=== PATIENT | male | born 1960 | race Caucasian/White ===

== ENCOUNTER 2020-09-12 06:11 | Outpatient (REF) | payer OTHER, SELFPAY ==
[2020-09-12 07:06] LABS: MANUAL DIFF FLAG NO
[2020-09-12 07:15] LABS: Basophils Percent Auto 0.3 % (0-2); Eosinophils Absolute Auto 0.2 X10*3/uL (0.0-0.4); Hematocrit 41.6 % (42-52); Hemoglobin 13.4 g/dl (14.0-18.0); Imm Gran Abs Auto 0.04 X10*3/uL (0.00-0.03); Imm Gran Pct Auto 0.5 % (0.0-0.4); Lymphocytes Absolute Auto 2.5 X10*3/uL (1.2-4.9); Lymphocytes Percent Auto 34.4 % (20-40); Mean Corpuscular HGB Conc 32.2 g/dl (31.0-36.0); Mean Corpuscular Hemoglobin 29.6 pg (27.0-33.0); Mean Corpuscular Volume 91.8 fL (80-98); Mean Platelet Volume 10.5 fL (9.4-12.4); Monocytes Absolute Auto 0.5 X10*3/uL (0.1-1.2); Monocytes Percent Auto 6.7 % (2-11); Neutrophils Percent Auto 55.1 % (45-73); Platelet Count 244 X10*3/uL (160-400); Red Blood Count 4.53 X10*6/uL (4.60-5.80); Red Cell Distribution Width 12.8 % (11.0-16.0); White Blood Count 7.3 X10*3/uL (4.8-10.8)
[2020-09-12 07:44] LABS: Creatinine Urine 53.12 mg/dL; Microalbumin Urine < 5.0 mg/L
[2020-09-12 08:00] LABS: Alanine Aminotransferase 19 U/L (0-40); Albumin Level 4.5 g/dL (3.5-5.0); Alkaline Phosphatase 55 U/L (39-117); Anion Gap 13 (12-20); Aspartate Amino Transferase 16 U/L (5-37); Bilirubin Total 0.7 mg/dL (0.0-1.0); Blood Urea Nitrogen 18 mg/dL (9-16); Calcium 9.3 mg/dL (8.4-10.2); Carbon Dioxide 30 mmol/L (22-29); Chloride 99 mmol/L (96-108); Cholesterol 126 mg/dL; Estimated Glomerular Filt Rate > 60; Glucose Fasting 123 mg/dL (60-99); HDL Cholesterol 49 mg/dL; LDL Cholesterol Calculated 63 mg/dl; Potassium 4.1 mmol/l (3.3-5.1); Sodium 138 mmol/L (135-145); Total Protein 6.8 g/dL (6.5-8.0); Triglycerides 72 mg/dL
[2020-09-12 08:20] LABS: Prostate Specific Antigen 2.16 ng/mL (<0.05-4.0); T4 Thyroxine 6.2 ug/dL (4.5-12.0); Thyroid Stimulating Hormone 1.59 uIU/mL (0.32-4.0)
[2020-09-12 09:54] LABS: Folate 10.9 ng/mL (> or = 4.0); Vitamin B12 338 pg/mL (200-900)
== END 2020-09-12 06:12 | disposition home or self-care (01) ==
LOC: HO.LAB 06:11
PROVIDERS: Visit Provider Internal Medicine
DX: E11.65 Type 2 diabetes mellitus with hyperglycemia (principal); K22.70 Barrett's esophagus without dysplasia; J45.909 Unspecified asthma, uncomplicated; N40.0 Benign prostatic hyperplasia without lower urinary tract symptoms; I10 Essential (primary) hypertension; E66.3 Overweight; E78.00 Pure hypercholesterolemia, unspecified
CPT/HCPCS: 36415; 80053; 80061; 82043; 82607; 82746; 84153; 84436; 84443; 85025

== ENCOUNTER 2021-03-19 07:19 | Outpatient (REF) | payer OTHER, SELFPAY ==
[2021-03-19 08:39] LABS: MANUAL DIFF FLAG NO
[2021-03-19 08:54] LABS: Basophils Percent Auto 0.2 % (0-2); Eosinophils Absolute Auto 0.3 X10*3/uL (0.0-0.4); Eosinophils Percent Auto 2.7 % (0-4); Hematocrit 42.5 % (42-52); Hemoglobin 13.5 g/dl (14.0-18.0); Imm Gran Abs Auto 0.03 X10*3/uL (0.00-0.03); Imm Gran Pct Auto 0.3 % (0.0-0.4); Immature Retic Fraction 8.8 % (2.3-13.4); Lymphocytes Absolute Auto 2.6 X10*3/uL (1.2-4.9); Lymphocytes Percent Auto 26.2 % (20-40); Mean Corpuscular HGB Conc 31.8 g/dl (31.0-36.0); Mean Corpuscular Hemoglobin 28.7 pg (27.0-33.0); Mean Corpuscular Volume 90.4 fL (80-98); Monocytes Absolute Auto 0.7 X10*3/uL (0.1-1.2); Monocytes Percent Auto 7.4 % (2-11); Neutrophils Absolute Auto 6.2 X10*3/uL (2.0-8.3); Neutrophils Percent Auto 63.2 % (45-73); Platelet Count 241 X10*3/uL (160-400); Red Cell Distribution Width 12.9 % (11.0-16.0); Retic HGB Equivalent 33.9 pg (30.0-35.0); Reticulocyte Percent 1.5 % (0.5-1.8); Reticulocytes Absolute 0.072 X10*6/uL (0.026-0.095); White Blood Count 9.7 X10*3/uL (4.8-10.8)
[2021-03-19 09:08] LABS: Iron 113 mcg/dL (45-160); Percent Iron Saturation 35 % (15-50); Total Iron Binding Capacity 327 mcg/dL (228-428); Unsaturated Iron Binding 214 ug/dL
[2021-03-19 09:17] LABS: Ferritin 77 ng/mL (20-250)
[2021-03-19 09:28] LABS: Folate 11.5 ng/mL (> or = 4.0); Vitamin B12 297 pg/mL (200-900)
== END 2021-03-19 07:20 | disposition home or self-care (01) ==
LOC: HO.LAB 07:19
PROVIDERS: PCP Internal Medicine; Visit Provider Internal Medicine
DX: D64.9 Anemia, unspecified (principal)
CPT/HCPCS: 36415; 82607; 82728; 82746; 83540; 85025; 85045

== ENCOUNTER 2021-09-25 06:39 | Outpatient (REF) | payer OTHER, SELFPAY ==
[2021-09-25 06:46] LABS: MANUAL DIFF FLAG NO
[2021-09-25 07:30] LABS: Basophils Percent Auto 0.1 % (0-2); Eosinophils Absolute Auto 0.3 X10*3/uL (0.0-0.4); Eosinophils Percent Auto 3.8 % (0-4); Hematocrit 42.7 % (42.0-52.0); Hemoglobin 13.6 g/dl (14.0-18.0); Imm Gran Abs Auto 0.04 X10*3/uL (0.00-0.03); Imm Gran Pct Auto 0.6 % (0.0-0.4); Lymphocytes Absolute Auto 2.8 X10*3/uL (1.2-4.9); Lymphocytes Percent Auto 40.1 % (20-40); Mean Corpuscular HGB Conc 31.9 g/dl (31.0-36.0); Mean Corpuscular Hemoglobin 29.2 pg (27.0-33.0); Mean Corpuscular Volume 91.8 fL (80.0-98.0); Mean Platelet Volume 10.7 fL (9.4-12.4); Monocytes Absolute Auto 0.6 X10*3/uL (0.1-1.2); Monocytes Percent Auto 7.8 % (2-11); Neutrophils Absolute Auto 3.4 x10*3/uL (2.0-8.3); Neutrophils Percent Auto 47.6 % (45-73); Platelet Count 256 X10*3/uL (160-400); Red Blood Count 4.65 X10*6/uL (4.60-5.80); Red Cell Distribution Width 12.7 % (11.0-16.0)
[2021-09-25 07:33] LABS: Estimated Average Glucose 140 mg/dL; Hemoglobin A1c % 6.5 %
[2021-09-25 07:46] LABS: Alanine Aminotransferase 17 U/L (0-40); Albumin Level 4.6 g/dL (3.5-5.0); Alkaline Phosphatase 55 U/L (39-117); Anion Gap 14 (12-20); Aspartate Amino Transferase 12 U/L (5-37); Bilirubin Total 0.5 mg/dL (0.0-1.0); Blood Urea Nitrogen 20 mg/dL (9-16); Calcium 10.1 mg/dL (8.4-10.2); Carbon Dioxide 27 mmol/L (22-29); Chloride 102 mmol/L (96-108); Cholesterol 142 mg/dL; Estimated Glomerular Filt Rate > 60; Glucose Random 140 mg/dL (60-115); HDL Cholesterol 55 mg/dL; LDL Cholesterol Calculated 74 mg/dl; Potassium 4.6 mmol/L (3.3-5.1); Sodium 138 mmol/L (135-145); Total Protein 7.2 g/dL (6.5-8.0); Triglycerides 69 mg/dL
[2021-09-25 08:09] LABS: Free T4 (Free Thyroxine) 0.96 ng/dL (0.71-1.85); Thyroid Stimulating Hormone 1.74 uIU/mL (0.32-4.0)
[2021-09-25 08:21] LABS: Folate 13.9 ng/mL (> or = 4.0); Vitamin B12 860 pg/mL (200-900)
[2021-09-25 10:15] LABS: Creatinine Urine 84.19 mg/dL; Microalbumin Urine < 5.0 mg/L
== END 2021-09-25 06:40 | disposition home or self-care (01) ==
LOC: HO.LAB 06:39
PROVIDERS: PCP Internal Medicine; Visit Provider Internal Medicine
DX: E11.65 Type 2 diabetes mellitus with hyperglycemia (principal); E78.00 Pure hypercholesterolemia, unspecified; I10 Essential (primary) hypertension; K22.710 Barrett's esophagus with low grade dysplasia
CPT/HCPCS: 36415; 80053; 80061; 82043; 82607; 82746; 83036; 84439; 84443; 85025

== ENCOUNTER 2022-02-26 10:02 | Outpatient (REF) | payer OTHER, SELFPAY | END 2022-02-26 10:03 | disposition home or self-care (01) | LOC: HO.LAB 10:02 | PROVIDERS: PCP Internal Medicine; Visit Provider Internal Medicine | DX: Z13.89 Encounter for screening for other disorder (principal) ==

== ENCOUNTER 2022-06-14 08:26 | Day surgery (SDC) | payer OTHER, SELFPAY ==
[2022-04-30 14:51] VITALS: BMI 29.0
--- NOTE | 2022-06-13 10:00 | P.CONAN_ITS ---
Documented by User: Zahida Lance NP 06/13/22 10:00 HPI - Anesthesia Eval Consult details Narrative: 61yo M for Upper Endoscopy [facility] Active Problems Active Problems: All Active Problems (Updated 03/27/21 @ 08:43 by Alden Palacios MD) Anemia (Acute) Hypercholesterolemia (Acute) Hypertension (Acute) BPH (benign prostatic hyperplasia) (Acute) Asthma (Acute) GERD (gastroesophageal reflux disease) (Acute) Barretts esophagus (Acute) Type 2 diabetes mellitus with hyperglycemia (Acute) Past Medical History Medical History Asthma Barretts esophagus BPH (benign prostatic hyperplasia) GERD (gastroesophageal reflux disease) Hypercholesterolemia Hypertension Type 2 diabetes mellitus with hyperglycemia Vitamin D deficiency Family History Family History (Updated 09/19/20 @ 13:54 by Albertina Villafuerte Ross) Father Prostate cancer Mother Stroke Brother Prostate cancer Family/Other Prostate cancer Diabetes Surgical History Surgical History H/O endoscopy History of colonoscopy History of esophagogastroduodenoscopy (EGD) Social History Social History (Updated 03/27/21 @ 08:48 by Marti Stokes CMA) Housing: House Alcohol intake: current Alcohol intake frequency: a few times a week Patient Tobacco Use Status: Never used Tobacco e-Cigarette/Vaping Use: Never Used Second Hand Smoke Exposure: No Use of substances other than those prescribed or required for medical reasons: No Are you DNR?: No Advance Directives: No Advance Directives Information Provided: Yes Current occupational status: employed Cognitive needs: No Hearing needs: No Vision needs: No Meds Allergies Allergy/AdvReac Type Severity Reaction Status Date / Time lisinopril Allergy Unknown cough Verified 04/30/22 14:44 Home Medications Medication Instructions Recorded Confirmed Last Taken Type albuterol sulfate 90 mcg/actuation 2 inh inhalation Q4-6H PRN Wheezing 09/22/20 04/30/22 Unknown History breath activated powder inhaler aspirin 81 mg tablet,delayed 81 mg PO DAILY 09/22/20 04/30/22 Unknown History release (Adult Aspirin Regimen) cholecalciferol (vitamin D3) 25 25 mcg PO DAILY 09/22/20 04/30/22 Unknown History mcg (1,000 unit) capsule finasteride 5 mg tablet 5 mg PO DAILY 09/22/20 04/30/22 Unknown History fluticasone propionate 110 2 puff inhalation BID 09/22/20 04/30/22 Unknown History mcg/actuation HFA aerosol inhaler (Flovent HFA) mometasone 0.1 % topical cream 1 applic topical DAILY 09/22/20 04/30/22 Unknown History Exam Exam Date and Time: June 13, 2022 1000 Height,Weight and Vital Signs: Height 5 ft 9 in Weight 89.358 kg Assessment and Plan Assessment Anesthesia Assessment: Chart Reviewed Documented by User: Roopa Quintana MD 06/14/22 09:52 [facility] Past Medical History Medical History Asthma Barretts esophagus BPH (benign prostatic hyperplasia) GERD (gastroesophageal reflux disease) Hypercholesterolemia Hypertension Type 2 diabetes mellitus with hyperglycemia Vitamin D deficiency Family History Family History (Updated 09/19/20 @ 13:54 by GREG Cardoza) Father Prostate cancer Mother Stroke Brother Prostate cancer Family/Other Prostate cancer Diabetes Family history of problems with anesthesia: No Surgical History Surgical History H/O endoscopy History of colonoscopy History of esophagogastroduodenoscopy (EGD) History of Problems with Anesthesia: No Social History Social History (Updated 03/27/21 @ 08:48 by Marti Stokes CMA) Housing: House Alcohol intake: current Alcohol intake frequency: a few times a week Patient Tobacco Use Status: Never used Tobacco e-Cigarette/Vaping Use: Never Used Second Hand Smoke Exposure: No Use of substances other than those prescribed or required for medical reasons: No Are you DNR?: No Advance Directives: No Advance Directives Information Provided: Yes Current occupational status: employed Cognitive needs: No Hearing needs: No Vision needs: No Meds Allergies Allergy/AdvReac Type Severity Reaction Status Date / Time lisinopril Allergy Unknown cough Verified 04/30/22 14:44 Home Medications Medication Instructions Recorded Confirmed Last Taken Type albuterol sulfate 90 mcg/actuation 2 inh inhalation Q4-6H PRN Wheezing 09/22/20 04/30/22 Unknown History breath activated powder inhaler aspirin 81 mg tablet,delayed 81 mg PO DAILY 09/22/20 04/30/22 Unknown History release (Adult Aspirin Regimen) cholecalciferol (vitamin D3) 25 25 mcg PO DAILY 09/22/20 04/30/22 Unknown History mcg (1,000 unit) capsule finasteride 5 mg tablet 5 mg PO DAILY 09/22/20 04/30/22 Unknown History fluticasone propionate 110 2 puff inhalation BID 09/22/20 04/30/22 Unknown History mcg/actuation HFA aerosol inhaler (Flovent HFA) mometasone 0.1 % topical cream 1 applic topical DAILY 09/22/20 04/30/22 Unknown History Exam Airway Mallampati Class: III TM Dist: >3cm Neck ROM: Full Assessment and Plan Assessment Anesthesia Assessment: Anesthesia Plan Discussed Final Anesthetic Review Family History of Problems with Anesthesia: No History of Problems with Anesthesia: No NPO: Yes ASA Class: III Final Preanesthetic Review: No Changes in Pt Med Stat, Meds/Allgs Chart Reviewed, Consent Obtained/Reviewed and Anes Risks/Benef Reviewed Patient Risk: Low Procedure Risk: Low Anesthetic Plan Anesthetic Plan: MAC: Disposition: Standard PACU
[2022-06-14 08:45] VITALS: BMI 28.8
[2022-06-14 08:54] VITALS: BP 121/70; PULSE 82; RESP 18; TEMP 36.2; O2SAT 97
[2022-06-14 09:18] LABS: Glucose, Whole Blood 140 mg/dL (60-115)
[2022-06-14] MEDS: Lactated Ringers 1,000 ML 100 ML IVCONT (09:19)
--- NOTE | 2022-06-14 09:23 | MHC.SHP ---
Pre-Procedural Eval Section A Date of Service: 06/14/22 Section B Chief Complaint: barretts Details of Present Illness: see H&P no changes Relevant Family History (Specify if Yes): No Relevant Social History: None Present Medications: None Medical History: Significant History History of Previous Operations: No relevant previous surgery Allergies: Allergies Allergy/AdvReac Type Severity Reaction Status Date / Time lisinopril Allergy Unknown cough Verified 04/30/22 14:44 Review of Systems Sugical H&P ROS: Negative: Constitution, Cardiovascular, Respiratory, Neurological, Psychiatric, Hem-Onc, Allergic/Immunologic, Gastrointestinal, Genitourinary, Musculoskeletal, Integumentary, Endocrine and Eyes/Ears/Nose/Throat Exam Surgical H&P Exam: Normal: HEENT, Normal: Heart, Normal: Lungs, Normal: Extremities, Normal: Abdomen, Normal: Skin and Normal: Neurological Plan Diagnosis/Plan: Unchanged I have reviewed the history and physical and performed a pertinent physical examination on my patient. No changes have occurred unless specified.
--- NOTE | 2022-06-14 09:24 | MHC.SHP ---
Pre-Procedural Eval Section A Date of Service: 06/14/22 Section B Chief Complaint: barretts Details of Present Illness: see H Allergies: Allergies Allergy/AdvReac Type Severity Reaction Status Date / Time lisinopril Allergy Unknown cough Verified 04/30/22 14:44 Plan I have reviewed the history and physical and performed a pertinent physical examination on my patient. No changes have occurred unless specified.
--- NOTE | 2022-06-14 09:47 | P.BOP_ITS ---
Brief Operative Note Date of Service: 06/14/22 Pre-op diagnosis: barretts Post-op diagnosis: same Procedure: egd Surgeon: Rodrigo Kay Anesthesia: MAC Was an Communication Studies Professor used for this Procedure?: No Estimated blood loss (mL): 5 Pathology: other Condition: stable Disposition: PACU
[2022-06-14 09:51] VITALS: BP 101/58; PULSE 64; RESP 16; TEMP 36.4; O2SAT 96
--- NOTE | 2022-06-14 10:00 | OP_ITS ---
SURGEON: Rodrigo Kay MD INDICATIONS: Montez esophagus. PREOPERATIVE DIAGNOSIS: POSTOPERATIVE DIAGNOSIS: PROCEDURE PERFORMED: Upper endoscopy with biopsy. ESTIMATED BLOOD LOSS: COMPLICATIONS: ANESTHESIA: ASSISTANTS: SPECIMENS: MEDICATIONS: Monitored anesthesia care. DESCRIPTION OF PROCEDURE: History and physical performed. The risks and benefits of the procedure were explained to the patient. Informed consent was obtained. The patient was placed in the left lateral decubitus position. The Olympus video gastroscope was introduced into the esophagus, stomach, and duodenum. Examination was performed. The scope was removed. He tolerated the procedure well and was returned to recovery area in stable condition. FINDINGS: 1. Esophagus: The esophagus showed an area of Montez esophagus extending from 34 cm to 38 cm. There were no raised lesions or ulcerated areas. There was a small hiatal hernia. 2. Stomach: The stomach was normal. 3. Duodenum : The bulb and second portion were normal. 4. Biopsies were obtained starting at the EG junction extending up the esophagus in all four quadrants every 2 cm. IMPRESSION: Montez esophagus. RECOMMENDATIONS: Follow up the biopsy results. MD CECE Peoples/LETICIA / [id number]
[2022-06-14 10:06] VITALS: BP 114/65; PULSE 69; RESP 16; O2SAT 97
== END 2022-06-14 10:50 | disposition home or self-care (01) ==
PROVIDERS: PCP Internal Medicine; Visit Provider Internal Medicine Gastroenterology
PROC: 0DJ08ZZ Inspection of Upper Intestinal Tract, Via Natural or Artificial Opening Endoscopic (ICD-10-PCS; CPT 43235; principal; 2022-06-14 09:40)
DX: K22.70 Barrett's esophagus without dysplasia (principal); K21.9 Gastro-esophageal reflux disease without esophagitis; K44.9 Diaphragmatic hernia without obstruction or gangrene; Z87.19 Personal history of other diseases of the digestive system; J45.909 Unspecified asthma, uncomplicated; E11.9 Type 2 diabetes mellitus without complications; N40.0 Benign prostatic hyperplasia without lower urinary tract symptoms; Z79.82 Long term (current) use of aspirin; Z79.84 Long term (current) use of oral hypoglycemic drugs; Z79.51 Long term (current) use of inhaled steroids; Z79.899 Other long term (current) drug therapy
CPT/HCPCS: 43239; 82947; 88305

== ENCOUNTER 2022-09-03 07:59 | Outpatient (REF) | payer OTHER, SELFPAY ==
[2022-09-03 08:06] LABS: MANUAL DIFF FLAG NO
[2022-09-03 08:45] LABS: Basophils Percent Auto 0.2 % (0-2); Eosinophils Absolute Auto 0.3 X10*3/uL (0.0-0.4); Eosinophils Percent Auto 3.2 % (0-4); Hematocrit 42.5 % (42.0-52.0); Hemoglobin 13.5 g/dl (14.0-18.0); Imm Gran Abs Auto 0.04 X10*3/uL (0.00-0.03); Imm Gran Pct Auto 0.5 % (0.0-0.4); Lymphocytes Absolute Auto 2.9 X10*3/uL (1.2-4.9); Lymphocytes Percent Auto 35.4 % (20-40); Mean Corpuscular HGB Conc 31.8 g/dl (31.0-36.0); Mean Corpuscular Hemoglobin 28.7 pg (27.0-33.0); Mean Corpuscular Volume 90.2 fL (80.0-98.0); Mean Platelet Volume 10.3 fL (9.4-12.4); Monocytes Absolute Auto 0.5 X10*3/uL (0.1-1.2); Monocytes Percent Auto 6.6 % (2-11); Neutrophils Absolute Auto 4.4 x10*3/uL (2.0-8.3); Neutrophils Percent Auto 54.1 % (45-73); Platelet Count 244 X10*3/uL (160-400); Red Blood Count 4.71 X10*6/uL (4.60-5.80); Red Cell Distribution Width 12.7 % (11.0-16.0); White Blood Count 8.1 X10*3/uL (4.8-10.8)
[2022-09-03 09:31] LABS: Alanine Aminotransferase 15 U/L (0-40); Albumin Level 4.6 g/dL (3.5-5.0); Alkaline Phosphatase 56 U/L (39-117); Anion Gap 17 (12-20); Aspartate Amino Transferase 21 U/L (5-37); Bilirubin Total 0.5 mg/dL (0.0-1.0); Blood Urea Nitrogen 15 mg/dL (9-16); Calcium 9.9 mg/dL (8.4-10.2); Carbon Dioxide 25 mmol/L (22-29); Chloride 100 mmol/L (96-108); Cholesterol 130 mg/dL; Estimated Glomerular Filt Rate > 60; Glucose Random 116 mg/dL (60-115); HDL Cholesterol 53 mg/dL; LDL Cholesterol Calculated 65 mg/dl; Potassium 4.6 mmol/L (3.3-5.1); Sodium 137 mmol/L (135-145); Triglycerides 62 mg/dL
[2022-09-03 09:39] LABS: Free T4 (Free Thyroxine) 0.93 ng/dL (0.71-1.85); Prostate Specific Antigen Scr 3.43 ng/mL (<0.05-4.0); Thyroid Stimulating Hormone 1.25 uIU/mL (0.32-4.0)
[2022-09-03 10:00] LABS: Folate 12.9 ng/mL (> or = 4.0); Vitamin B12 1031 pg/mL (200-900)
[2022-09-03 11:14] LABS: Creatinine Urine 71.14 mg/dL; Microalbumin Urine < 5.0 mg/L
== END 2022-09-03 08:00 | disposition home or self-care (01) ==
LOC: HO.LAB 07:59
PROVIDERS: PCP Internal Medicine; Visit Provider Internal Medicine
DX: E11.65 Type 2 diabetes mellitus with hyperglycemia (principal); K21.9 Gastro-esophageal reflux disease without esophagitis; K22.70 Barrett's esophagus without dysplasia; E78.00 Pure hypercholesterolemia, unspecified; Z12.5 Encounter for screening for malignant neoplasm of prostate
CPT/HCPCS: 36415; 80053; 80061; 82043; 82607; 82746; 84153; 84439; 84443; 85025

== ENCOUNTER 2023-08-11 09:51 | Outpatient (AMB) | payer OTHER, SELFPAY ==
[2023-08-11 10:41] VITALS: BP 112/66; PULSE 88; O2SAT 95; BMI 29.4
--- NOTE | 2023-08-11 10:41 | MHC.OFFWIV ---
Intake Vital Signs 08/11/23 10:41 Height 5 ft 9 in Weight 199 lb BMI 29.4 BP 112/66 Blood Pressure Location Lt brachial Position Sitting Pulse 88 Pulse Source Pulse Oximeter Pulse Oximetry (%) 95 Oxygen Delivery Method Room Air Intake Visit Reasons: est/both eyes bloodshot(lobby) Intake Note: Pt is here today for a walk in visit. Pt c/o redness itchy, puffy irritated eyes for a week. Pt states that he has been taking Sruthi which is not helping. Pt states that he had cold 2 weeks ago. Patient Tobacco Use Status: Never used Tobacco Allergies lisinopril Allergy (Unknown, Verified 08/11/23 11:30) cough Medication List - Last Reconciled 08/11/23 by Nic Dominguez MD albuterol sulfate 90 mcg/actuation 2 inhalations inhalation Q4-6H PRN atorvastatin 10 mg PO DAILY blood sugar diagnostic (OneTouch Ultra Blue Test Strip) As directed check the blood sugar once a day cholecalciferol (vitamin D3) 25 mcg PO DAILY finasteride 5 mg PO DAILY fluticasone propionate 110 mcg/actuation (Flovent HFA) 2 puffs inhalation BID lancets (OneTouch Delica Plus Lancet) As directed check the BS QD losartan 25 mg PO DAILY metformin 1,000 mg PO BID olopatadine 0.1% 1 drp ophthalmic (eye) BID omeprazole 20 mg PO DAILY Do you need a note to return to daycare/school/sports/work: No HPI est/both eyes bloodshot(lobby) HPI Details 62-year-old male presents to the office for a sick visit. Patient has history of allergy and usually takes loratadine. Over the last week he is complaining of burning in his eyes and puffiness. Minimal mucoid discharge. Continues to have running nose. [facility] Medical History (Updated 09/12/22 @ 09:30 by Alden Palacios MD) Hypercholesterolemia Vitamin D deficiency Hypertension BPH (benign prostatic hyperplasia) Asthma GERD (gastroesophageal reflux disease) Barretts esophagus Type 2 diabetes mellitus with hyperglycemia Surgical History History of esophagogastroduodenoscopy (EGD) H/O endoscopy History of colonoscopy Family History (Updated 09/19/20 @ 13:54 by GREG Cardoza) Father Prostate cancer Mother Stroke Brother Prostate cancer Family/Other Prostate cancer Diabetes Social History (Updated 09/12/22 @ 09:38 by Alden Palacios MD) Housing: House Alcohol intake: current Alcohol intake frequency: a few times a week Patient Tobacco Use Status: Never used Tobacco e-Cigarette/Vaping Use: Never Used Second Hand Smoke Exposure: No Current occupational status: employed Cognitive needs: No Hearing needs: No Vision needs: No Physical Exam Vital Signs: Last Vital Signs Pulse 88 08/11/23 10:41 BP 112/66 08/11/23 10:41 Pulse Ox 95 08/11/23 10:41 Oxygen Delivery Method Room Air 08/11/23 10:41 BMI result Body Mass Index 29.4 Eyes Other: Right and left eyes: Bilateral conjunctival congestion. Corneas clear. Anterior chambers clear. Assessment & Plan Assessment & Plan (1) Conjunctivitis: Code(s): H10.9 - Unspecified conjunctivitis Qualifiers: Conjunctivitis type: acute Acute conjunctivitis type: unspecified Laterality: bilateral Qualified Code(s): H10.33 - Unspecified acute conjunctivitis, bilateral Plan: Patanol and erythromycin called in. If symptoms do not improve to follow-up here. Coding Level of Care Code Est Pt Level 3 (87050) Diagnoses Acute conjunctivitis of both eyes, unspecified acute conjunctivitis type H10.33 Conjunctivitis type: acute Acute conjunctivitis type: unspecified Laterality: bilateral
== END 2023-08-11 11:57 | disposition home or self-care (01) ==
PROVIDERS: PCP Internal Medicine; Visit Provider Internal Medicine
DX: H10.33 Unspecified acute conjunctivitis, bilateral (principal)
CPT/HCPCS: 99213

== ENCOUNTER 2023-09-11 06:59 | Outpatient (REF) | payer OTHER, SELFPAY ==
[2023-09-11 07:09] LABS: MANUAL DIFF FLAG NO
[2023-09-11 07:22] LABS: Basophils Percent Auto 0.2 % (0-2); Eosinophils Absolute Auto 0.2 X10*3/uL (0.0-0.4); Eosinophils Percent Auto 2.2 % (0-4); Hemoglobin 13.4 g/dl (14.0-18.0); Imm Gran Abs Auto 0.05 X10*3/uL (0.00-0.03); Imm Gran Pct Auto 0.4 % (0.0-0.4); Immature Retic Fraction 7.8 % (2.3-13.4); Lymphocytes Absolute Auto 2.6 X10*3/uL (1.2-4.9); Lymphocytes Percent Auto 23.7 % (20-40); Mean Corpuscular HGB Conc 32.7 g/dl (31.0-36.0); Mean Corpuscular Hemoglobin 29.3 pg (27.0-33.0); Mean Corpuscular Volume 89.5 fL (80.0-98.0); Mean Platelet Volume 10.1 fL (9.4-12.4); Monocytes Absolute Auto 0.7 X10*3/uL (0.1-1.2); Monocytes Percent Auto 6.5 % (2-11); Neutrophils Absolute Auto 7.5 x10*3/uL (2.0-8.3); Platelet Count 220 X10*3/uL (160-400); Red Blood Count 4.58 X10*6/uL (4.60-5.80); Retic HGB Equivalent 34.1 pg (30.0-35.0); Reticulocyte Percent 1.5 % (0.5-1.8); Reticulocytes Absolute 0.067 X10*6/uL (0.026-0.095); White Blood Count 11.2 X10*3/uL (4.8-10.8)
[2023-09-11 07:32] LABS: Estimated Average Glucose 143 mg/dL; Hemoglobin A1c % 6.6 % (<6.0)
[2023-09-11 07:47] LABS: Alanine Aminotransferase 18 U/L (0-40); Albumin Level 4.5 g/dL (3.5-5.0); Alkaline Phosphatase 53 U/L (39-117); Anion Gap 14 (12-20); Aspartate Amino Transferase 17 U/L (5-37); Bilirubin Total 0.6 mg/dL (0.0-1.0); Blood Urea Nitrogen 14 mg/dL (9-16); Calcium 9.4 mg/dL (8.4-10.2); Carbon Dioxide 30 mmol/L (22-29); Chloride 99 mmol/L (96-108); Cholesterol 138 mg/dL (<200); Estimated Glomerular Filt Rate > 60; Glucose Random 141 mg/dL (60-115); HDL Cholesterol 55 mg/dL (>40); Iron 97 mcg/dL (45-160); LDL Cholesterol Calculated 68 mg/dL (<100); Percent Iron Saturation 34 % (15-50); Potassium 3.8 mmol/L (3.3-5.1); Sodium 139 mmol/L (135-145); Total Iron Binding Capacity 282 mcg/dL (228-428); Total Protein 7.3 g/dL (6.5-8.0); Triglycerides 76 mg/dL (<150); Unsaturated Iron Binding 185 ug/dL
[2023-09-11 08:01] LABS: Ferritin 73 ng/mL (20-250); Free T4 (Free Thyroxine) 0.87 ng/dL (0.71-1.85); Thyroid Stimulating Hormone 1.76 uIU/mL (0.32-4.0)
[2023-09-11 08:15] LABS: Folate 10.9 ng/mL (> or = 4.0); Vitamin B12 1214 pg/mL (200-900)
[2023-09-11 08:52] LABS: Creatinine Urine 129.82 mg/dL; Microalbum/Creatinine Ratio Ur 5.3 ug/mg cr (<30)
== END 2023-09-11 07:00 | disposition home or self-care (01) ==
LOC: HO.LAB 06:59
PROVIDERS: PCP Internal Medicine; Visit Provider Internal Medicine
DX: E11.65 Type 2 diabetes mellitus with hyperglycemia (principal); K22.70 Barrett's esophagus without dysplasia; D51.3 Other dietary vitamin B12 deficiency anemia; N40.1 Benign prostatic hyperplasia with lower urinary tract symptoms; R35.0 Frequency of micturition; E78.00 Pure hypercholesterolemia, unspecified
CPT/HCPCS: 36415; 80053; 80061; 82043; 82570; 82607; 82728; 82746; 83036; 83540; 84153; 84439; 84443; 85025; 85045

== ENCOUNTER 2023-09-19 09:57 | Outpatient (AMB) | payer OTHER, SELFPAY ==
[2023-09-19 10:08] VITALS: BP 118/72; PULSE 73; O2SAT 97; BMI 28.7
--- NOTE | 2023-09-19 10:08 | MHC.PC.OV ---
Vital Signs 09/19/23 10:08 Height 5 ft 9 in Weight 194 lb 2 oz BMI 28.7 BP 118/72 Blood Pressure Location Lt brachial Position Sitting Pulse 73 Pulse Source Pulse Oximeter Pulse Oximetry (%) 97 Oxygen Delivery Method Room Air Intake Visit Reasons: Annual Exam Intake Note: Patient is here today for a physical. Compensator Worker Required: No Accompanied by: Self / Same As Patient Allergies lisinopril Allergy (Unknown, Verified 09/19/23 10:11) cough Medication List - Last Reconciled 09/19/23 by Alden Palacios MD albuterol sulfate 90 mcg/actuation 2 inhalations inhalation Q4-6H PRN atorvastatin 10 mg PO DAILY blood sugar diagnostic (Ringio Ultra Blue Test Strip) As directed check the blood sugar once a day cholecalciferol (vitamin D3) 25 mcg PO DAILY finasteride 5 mg PO DAILY fluticasone propionate 110 mcg/actuation (Flovent HFA) 2 puffs inhalation BID lancets (Code Blueuch Delica Plus Lancet) As directed check the BS QD losartan 25 mg PO DAILY metformin 1,000 mg PO BID olopatadine 0.2% (Pataday Once Daily Relief) 1 drp ophthalmic (eye) BEDTIME omeprazole 20 mg PO DAILY xcjznzw-bwdn-qhijv-oreg-capryl 100 mg-150 mg- 50 mg-150 mg caps PO Tobacco use date assessed: 03/14/23 Dental Screening Dental Screen Date: 09/19/23 Did you have a dental visit in the last 12 months?: Yes Did you have a dental problem in the last 6 months where you did not have access to dental care?: No Was dental information given to patient?: Patient has dentist HPI Annual Exam HPI Details 62-year-old overweight male with diabetes mellitus Montez's esophagus asthma hypertension hypercholesterolemia last seen in March 2023. Patient is up-to-date with colon test January 2019 [facility] Medical History (Updated 09/19/23 @ 11:05 by Alden Palacios MD) Hypercholesterolemia Vitamin D deficiency Hypertension BPH (benign prostatic hyperplasia) Asthma GERD (gastroesophageal reflux disease) Barretts esophagus Type 2 diabetes mellitus with hyperglycemia Surgical History History of esophagogastroduodenoscopy (EGD) H/O endoscopy History of colonoscopy Family History Father Prostate cancer Mother Stroke Brother Prostate cancer Family/Other Prostate cancer Diabetes Social History (Updated 09/19/23 @ 10:48 by Alden Palacios MD) Housing: House Alcohol intake: current Alcohol intake frequency: a few times a week Patient Tobacco Use Status: Never used Tobacco e-Cigarette/Vaping Use: Never Used Second Hand Smoke Exposure: No Current occupational status: employed Cognitive needs: No Hearing needs: No Vision needs: No Questionnaire Thrive Questionnaire Date Thrive assessed: 03/14/23 DEBBIE-7 AMB Questionnaire DEBBIE-7 Date DEBBIE - 7 assessed: 03/14/23 Source: Developed by Drs. Justo Michaud, Sheyla Mcgee, Everett Valentin and colleagues, with an educational samina from [employer]. Review of Systems Const Denies poor appetite and Denies weakness Eyes Denies no additional complaints ENT Reports Normal hearing present, Denies dizziness, Denies nasal congestion, Denies tinnitus and Denies sore throat Card Denies chest pain, Denies syncope, Denies rapid heart rate and Denies dyspnea Resp Denies cough and Denies dyspnea GI Denies change in stool character, Reports constipation, Denies diarrhea, Denies nausea and Denies vomiting Denies dysuria and Denies urinary frequency Neuro Reports Normal hearing present, Denies confusion, Denies dizziness, Denies syncope and Denies weakness Psych Denies confusion Physical exam (Primary Care) Vital Signs: Last Vital Signs Pulse 73 09/19/23 10:08 BP 118/72 09/19/23 10:08 Pulse Ox 97 09/19/23 10:08 Oxygen Delivery Method Room Air 09/19/23 10:08 BMI result Body Mass Index 28.7 Tobacco/Smoking Status: Tobacco use Status Tobacco use date assessed 03/14/23 09/19/23 10:14 Patient Tobacco Use Status Never used Tobacco 09/19/23 10:48 e-Cigarette/Vaping Use Never Used 09/19/23 10:48 Thrive Assessment: Date of Thrive Assessment Date Thrive assessed 03/14/23 09/19/23 10:14 Const General: alert and awake; No confusion Orientation/consciousness: No confusion HENMT Other: impacted cerumen bilateral Head: Yes normocephalic Ears: external ears normal Face and sinus: Yes normal facial exam Mouth: moist mucous membranes Throat: Yes tonsils normal Eyes Conjunctivae: conjunctivae normal Pupils: Equal, round and reactive pupils present and Pupil accommodation reflex normal Direct Ophthalmoscopy: normal light reflex Neck Neck: No lymphadenopathy Thyroid: Thyroid normal Chest Chest palpation & inspection: normal inspection of the chest Resp Effort & Inspection: normal respiratory effort and no audible wheezes Auscultation: clear to auscultation bilaterally, no crackles, no wheezes and lung sounds not diminished Cardio Rate: regular rate Rhythm: regular rhythm Peripheral pulses: radial pulses present and dorsalis pedis present GI Other: Patient declined rectal exam Palpation (GI): no masses Auscultation: normal bowel sounds and normoactive bowel sounds Rectal Exam - Male: Yes deferred Male General Exam: Yes normal external exam Back/Spine/Pelvis Other: Pedal pulses normal pinprick normal Skin General skin exam: no rashes or lesions noted Rashes: no rashes Neuro General: deep tendon reflexes 2+ bilaterally and No confusion Cranial nerves: Yes Equal, round and reactive pupils present, Yes Midline tongue present, Yes Normal hearing present and Yes Ability to bilaterally elevate shoulders present Cognition (Neuro): normal cognition Gait exam (Neuro): Normal gait present Motor exam (neuro): 5/5 motor strength present throughout Deep tendon reflexes (DTR's): Right brachioradialis reflex intensity grade: 2+, Left brachioradialis reflex intensity grade: 2+, Right patellar reflex intensity grade: 2+ and Left patellar reflex intensity grade: 2+ Extrem General: No edema Office Procedures Cerumen Removal From which ear canal was the cerumen removed: bilateral Removal: otoscope w/curette and cerumen loop/spoon Notes: patient tolerated procedure well, no complications and ear canal clear [id number] Wax Removal by Spoon/Curette Flu Questionnaire Does the patient have a severe egg allergy?: No Does the patient have severe life threatening allergies?: No Does the patient have a fever or illness today?: No Has the patient ever had Guillain-Walcott Syndrome?: No Has the patient ever had any past reaction to a flu shot?: No Immunizations flu vacc [id number] 6mos up(PF) 60 mcg(15 mcgx4)/0.5 mL IM syringe Performing Provider: Alden Palacios MD Performing Location: [facility] Administered by: MAGGIE Escobedo on 09/19/23 10:24 Dose Route Admin Location Dispensed Lot Number Expiration Date NDC Jet Blade Polisher 0.5 mL IM Left Deltoid 0.5 mL [id number] 05/02/24 81852-864-68 [facility] VIS Given Date VIS Provided VIS Publication Date 09/19/23 Single Vaccine 21 Eligibility Eligibility Date Funding Source Not [facility] Eligible 09/19/23 Private Assessment and Plan Assessment & Plan (1) Annual physical exam: Code(s): Z00.00 - Encounter for general adult medical examination without abnormal findings (2) Anemia: Code(s): D64.9 - Anemia, unspecified Qualifiers: Anemia type: B12 deficiency Vitamin B12 deficiency anemia type: other dietary B12 deficiency Qualified Code(s): D51.3 - Other dietary vitamin B12 deficiency anemia Plan: Chronic and stable (3) Type 2 diabetes mellitus with hyperglycemia: Comment: dR. Tong Eye and lasik Code(s): E11.65 - Type 2 diabetes mellitus with hyperglycemia Qualifiers: Diabetes mellitus long term care administrator insulin use: without group home use Qualified Code(s): E11.65 - Type 2 diabetes mellitus with hyperglycemia Plan: Decrease the amount of carbohydrate intake, pasta, bread, rice and potatoes are all sugar and that is aside from all the sweet stuff, remember that fruits are good but they are Sweet also. Hemoglobin A1c goal of less than 6.5 (4) Barretts esophagus: Comment: November 2012 Dr. Kay July 2022 Code(s): K22.70 - Montez's esophagus without dysplasia Qualifiers: Montez's esophagus type: without dysplasia Qualified Code(s): K22.70 - Montez's esophagus without dysplasia Plan: Avoid the foods that causes that usually spicy foods, tomato products, juices, coffee, soda and foods that your sensitive to. After eating do not lie down, allow 3-4 hours before in lie down. And keep the head of bed above 30 degrees to avoid the acid from going up. (5) Asthma: Code(s): J45.909 - Unspecified asthma, uncomplicated Qualifiers: Asthma complication type: uncomplicated Asthma persistence: intermittent Asthma severity: mild Qualified Code(s): J45.20 - Mild intermittent asthma, uncomplicated Plan: Continue with inhaler as needed (6) BPH (benign prostatic hyperplasia): Comment: Dr. Mccarthy Code(s): N40.0 - Benign prostatic hyperplasia without lower urinary tract symptoms Qualifiers: Lower urinary tract symptom detail: urinary frequency Lower urinary tract symptom presence: symptoms present Qualified Code(s): N40.1 - Benign prostatic hyperplasia with lower urinary tract symptoms; R35.0 - Frequency of micturition Plan: Continue with finasteride (7) Hypertension: Code(s): I10 - Essential (primary) hypertension Qualifiers: Hypertension type: essential hypertension Qualified Code(s): I10 - Essential (primary) hypertension Plan: Continue with blood pressure medication. Decrease salt intake and exercise patient on losartan 25 mg once a day (8) Hypercholesterolemia: Code(s): E78.00 - Pure hypercholesterolemia, unspecified Plan: Avoid fried foods, chicken skin, eggs, butter margarine, pastries and meat. Be it pork or beef they have a lot of cholesterol LDL goal of less than 100 and triglyceride of less than 150 patient on atorvastatin 10 mg once a day (9) Impacted cerumen of both ears: Code(s): H61.23 - Impacted cerumen, bilateral Plan: scoop and no irrigation TM intact Orders: Orders Influenza [id number] Immunization Today Z23 - Encounter for immunization Coding Level of Care Code Est Pt Prev Care 40-64y(22539) Diagnoses Annual physical exam Z00.00 Other dietary vitamin B12 deficiency anemia D51.3 Anemia type: B12 deficiency Vitamin B12 deficiency anemia type: other dietary B12 deficiency Type 2 diabetes mellitus with hyperglycemia, without long-term current use of insulin E11.65 Diabetes mellitus long term care administrator insulin use: without long term care administrator use Montez's esophagus without dysplasia K22.70 Montez's esophagus type: without dysplasia Mild intermittent asthma without complication J45.20 Asthma complication type: uncomplicated Asthma persistence: intermittent Asthma severity: mild Benign prostatic hyperplasia with urinary frequency N40.1; R35.0 Lower urinary tract symptom detail: urinary frequency Lower urinary tract symptom presence: symptoms present Essential hypertension I10 Hypertension type: essential hypertension Hypercholesterolemia E78.00 Impacted cerumen of both ears H61.23 CPT Codes Office Procedure - CPT: 55263-[id number] Wax Removal by Spoon/Curette ([id number])
== END 2023-09-19 11:14 | disposition home or self-care (01) ==
PROVIDERS: Visit Provider Internal Medicine
DX: Z00.00 Encounter for general adult medical examination without abnormal findings (principal); E11.65 Type 2 diabetes mellitus with hyperglycemia; D51.3 Other dietary vitamin B12 deficiency anemia; K22.70 Barrett's esophagus without dysplasia; J45.20 Mild intermittent asthma, uncomplicated; N40.1 Benign prostatic hyperplasia with lower urinary tract symptoms; H61.23 Impacted cerumen, bilateral; Z23 Encounter for immunization; R35.0 Frequency of micturition; I10 Essential (primary) hypertension; E78.00 Pure hypercholesterolemia, unspecified
CPT/HCPCS: 69210; 90471; 90686; 99396

== ENCOUNTER 2023-11-10 11:20 | Outpatient (AMB) | payer OTHER, SELFPAY ==
[2023-11-10 11:26] VITALS: BP 118/66; PULSE 79; TEMP 36.4; O2SAT 97; BMI 29.4
--- NOTE | 2023-11-10 11:26 | AM.OFFWIN_ITS ---
Intake Vital Signs 11/10/23 11:26 Height 5 ft 9 in Weight 199 lb BMI 29.4 BP 118/66 Pulse 79 Pulse Source Pulse Oximeter Temp 97.6 F Pulse Oximetry (%) 97 Oxygen Delivery Method Room Air Intake Visit Reasons: EST/ongoing eye irritation (lobby) Intake Note: pt is here today for ongoing eye irritation started week ago Patient Tobacco Use Status: Never used Tobacco Allergies lisinopril Allergy (Unknown, Verified 11/10/23 12:02) cough Do you need a note to return to daycare/school/sports/work: No HPI HPI Comments History of Present Illness Details Patient presents to the walkin today for irritation to the left eye for last 2 days. Patient reports itching to the left eye. was seen here in the fall for the same. Has an appt with eye doctor next month. He had remaining abx ointment from last visit and has been using that for last 2 days Denies pain to the eye, denies vision changes, headache. Patient denies pain with eye movement. Denies fever, cough, sinus congestion, sore throat or ear ache. Denies trauma to the eye or foreign body sensation. [facility] Medical History (Updated 09/19/23 @ 11:05 by Alden Palacios MD) Hypercholesterolemia Vitamin D deficiency Hypertension BPH (benign prostatic hyperplasia) Asthma GERD (gastroesophageal reflux disease) Barretts esophagus Type 2 diabetes mellitus with hyperglycemia Surgical History History of esophagogastroduodenoscopy (EGD) H/O endoscopy History of colonoscopy Family History Father Prostate cancer Mother Stroke Brother Prostate cancer Family/Other Prostate cancer Diabetes Social History (Updated 09/19/23 @ 10:48 by Alden Palacios MD) Housing: House Alcohol intake: current Alcohol intake frequency: a few times a week Patient Tobacco Use Status: Never used Tobacco e-Cigarette/Vaping Use: Never Used Second Hand Smoke Exposure: No Current occupational status: employed Cognitive needs: No Hearing needs: No Vision needs: No Review of Systems Const All systems reviewed & are unremarkable except as noted in HPI and below Physical Exam Vital Signs: Last Vital Signs Temp 97.6 F 11/10/23 11:26 Pulse 79 11/10/23 11:26 BP 118/66 01/08/24 11:26 Pulse Ox 97 11/10/23 11:26 Oxygen Delivery Method Room Air 11/10/23 11:26 BMI result Body Mass Index 29.4 General: awake, alert, oriented. Answers questions appropriately. Fully engaged in examination. Skin: warm, dry, intact HEENT: Normocephalic. Hearing intact. left eye: +conjunctival injection. no discharge noted Cardiac: External chest normal in appearance. Respiratory: No cough, audible wheezing or stridor. Abdomen: without gross distension. MS: No obvious swelling or deformities. Neurological: Oriented to person, place, time and situation. Thought process intact. Psychiatric: Appropriate mood and affect. Good judgment and insight. Assessment & Plan Assessment & Plan (1) Conjunctivitis: Code(s): H10.9 - Unspecified conjunctivitis Plan Erythromycin ointment and olopatadine RX sent. patient instructed on use. Avoid touching, rubbing the eyes. Do not use same area of facecloth to clean both eyes. Wash hands often. All questions and concerns were answered during the visit. Patient agrees with the plan. Follow up with pcp or return to walkin for any new or worsening symptoms. Follow up with eye dr as planned. All question and concerns addressed during visit, patient agrees with plan. Medications: Refilled erythromycin 0.5 inches ophthalmic (eye) TID 1 g 0RF olopatadine 0.1% 1 drp ophthalmic (eye) BID 5 caps 4RF Coding Level of Care Code Est Pt Level 4 (76185) Diagnoses Conjunctivitis H10.9
== END 2023-11-10 12:55 | disposition home or self-care (01) ==
PROVIDERS: PCP Internal Medicine; Visit Provider Registered Nurse Emergency
DX: H10.9 Unspecified conjunctivitis (principal)
CPT/HCPCS: 99213

== ENCOUNTER 2024-03-19 08:35 | Outpatient (AMB) | payer OTHER, SELFPAY ==
[2024-03-19 08:59] VITALS: BP 104/62; PULSE 70; BMI 29.1
--- NOTE | 2024-03-19 08:59 | MHC.PC.OV ---
Vital Signs 03/19/24 08:59 Height 5 ft 9 in Weight 197 lb BMI 29.1 BP 104/62 Blood Pressure Location Lt brachial Position Sitting Pulse 70 Pulse Source Pulse Oximeter Oxygen Delivery Method Room Air Intake Visit Reasons: DM Panel Raiser Operator Required: No Lead Driver: Not Required per policy Accompanied by: Self / Same As Patient Allergies lisinopril Allergy (Unknown, Verified 03/19/24 08:59) cough Medication List - Last Reconciled 03/19/24 by Alden Palacios MD albuterol sulfate 90 mcg/actuation 2 inhalations inhalation Q4-6H PRN atorvastatin 10 mg PO DAILY blood sugar diagnostic ([employer] Ultra Blue Test Strip) As directed check the blood sugar once a day cholecalciferol (vitamin D3) 25 mcg PO DAILY erythromycin 0.5 inches ophthalmic (eye) TID finasteride 5 mg PO DAILY fluticasone propionate 110 mcg/actuation (Flovent HFA) 2 puffs inhalation BID lancets (CHARMS PPEC Delica Plus Lancet) As directed check the BS QD losartan 25 mg PO DAILY metformin 1,000 mg PO BID olopatadine 0.1% 1 drp ophthalmic (eye) BID olopatadine 0.2% (Pataday Once Daily Relief) 1 drp ophthalmic (eye) BEDTIME omeprazole 20 mg PO DAILY zifzxfud-tznc-mdqpo-oreg-capry 100 mg-150 mg- 50 mg-150 mg caps PO Tobacco use date assessed: 03/19/24 Dental Screening Dental Screen Date: 03/19/24 Did you have a dental visit in the last 12 months?: Yes Did you have a dental problem in the last 6 months where you did not have access to dental care?: No Was dental information given to patient?: Patient has dentist HPI DM HPI Details 63-year-old overweight male(5 lb weight gain) with diabetes mellitus Barretts asthma BPH hypertension hypercholesterolemia coming in for follow-up. Last seen in September 2023 having a physical at that time. Patient's colonoscopy last done in January 2019 and is due for colonoscopy this year. Patient follows up with urology seen in December for elevated PSA under surveillance advised follow-up PSA. activity limited R knee decline xray uses Voltaren but does not feel a big help. But declined any new medication. Blood pressure is fine no dizziness. [facility] Medical History (Updated 03/19/24 @ 09:37 by Alden Palacios MD) Hypercholesterolemia Vitamin D deficiency Hypertension BPH (benign prostatic hyperplasia) Asthma GERD (gastroesophageal reflux disease) Barretts esophagus Type 2 diabetes mellitus with hyperglycemia Surgical History History of esophagogastroduodenoscopy (EGD) H/O endoscopy History of colonoscopy Family History Father Prostate cancer Mother Stroke Brother Prostate cancer Family/Other Prostate cancer Diabetes Social History (Updated 09/19/23 @ 10:48 by Alden Palacios MD) Housing: House Alcohol intake: current Alcohol intake frequency: a few times a week Patient Tobacco Use Status: Never used Tobacco e-Cigarette/Vaping Use: Never Used Second Hand Smoke Exposure: No Current occupational status: employed Cognitive needs: No Hearing needs: No Vision needs: No Questionnaire PHQ-9 Over the last 2 weeks, how often have you been bothered by any of the following problems? 1. Little interest or pleasure in doing things: not at all 2. Feeling down, depressed, or hopeless: not at all 3. Trouble falling or staying asleep, or sleeping too much: not at all 4. Feeling tired or having little energy: not at all 5. Poor appetite or overeating: not at all 6. Feeling bad about yourself - or that you are a failure or have let yourself or your family down: not at all 7. Trouble concentrating on things, such as reading the newspaper or watching television: not at all 8. Moving or speaking so slowly that other people could have noticed. Or the opposite - being so fidgety or restless that you have been moving around a lot more than usual: not at all 9. Thoughts that you would be better off or of hurting yourself in some way: not at all Total score: 0 Depression Screening Interpretation: Negative Depression Screening Done: Yes Source: Developed by Drs. Justo Michaud, Sheyla Mcgee, Everett Valentin and colleagues, with an educational samina from [employer]. Thrive Questionnaire Date Thrive assessed: 03/19/24 I am a: Patient What is your living situation today?: I have a steady place to live Within the past 12 months, did the food you bought not last and you didn't have the money to get more?: Never true Within the past 12 months, did you worry whether your food would run out before you got money to buy more?: Never true Do you have trouble paying for medicines?: No Do you have trouble getting transportation to medical appointments?: No Do you have trouble paying your heating and electricity bill?: No Do you have trouble taking care of your child, family member or friend?: No Do you have trouble with day-to-day activities such as bathing, preparing meals, shopping, managing finances, etc.?: No Are you currently unemployed and looking for a job?: No Are you interested in more education?: No Please select the resources that you would like help with: None THRIVE Score: 0 AUDIT C Alcohol Use Questionnaire (AUDIT-C) 1. How often do you have a drink containing alcohol?: 2-3 times a week 2. How many drinks containing alcohol do you have on a typical day when you are drinking?: 1 or 2 3. How often do you have six or more drinks on one occasion?: Never Total Score: 3 DEBBIE-7 AMB Questionnaire DEBBIE-7 Date DEBBIE - 7 assessed: 03/19/24 Feeling nervous, anxious, or on edge: 0 = Not at all Not being able to stop or control worryin = Not at all Worrying too much about different things: 0 = Not at all Trouble relaxin = Not at all Being so restless that it is hard to sit still: 0 = Not at all Becoming easily annoyed or irritable: 0 = Not at all Feeling afraid as if something awful might happen: 0 = Not at all Total DEBBIE-7 score (0-4 normal; 5-9 mild; 10-14 moderate; 15-21 severe): 0 Source: Developed by Drs. Justo Michaud, Sheyla Mcgee, Everett Valentin and colleagues, with an educational samina from [employer]. Physical exam (Primary Care) Vital Signs: Last Vital Signs Pulse 70 03/19/24 08:59 BP 104/62 03/19/24 08:59 Oxygen Delivery Method Room Air 03/19/24 08:59 BMI result Body Mass Index 29.1 Tobacco/Smoking Status: Tobacco use Status Tobacco use date assessed 03/19/24 03/19/24 09:00 Patient Tobacco Use Status Never used Tobacco 03/19/24 09:00 e-Cigarette/Vaping Use Never Used 03/19/24 09:00 PHQ-9: PHQ-9 Score PHQ-9: Total score 0 03/19/24 09:30 Depression Screening Interpretation: Negative Thrive Assessment: Date of Thrive Assessment Date Thrive assessed 03/19/24 03/19/24 09:00 Const General: alert; No acute distress Eyes Conjunctivae: conjunctivae normal Resp Auscultation: clear to auscultation bilaterally Cardio Rate: regular rate Rhythm: regular rhythm GI Inspection: Yes normal to inspection Extrem General: Yes normal to inspection and No edema Results AMB Hemoglobin A1c AMB Hemoglobin A1c 7.2 % Last Edit by Marti Stokes CMA on 03/19/24 09:31 Results Reviewed Results Reviewed: Laboratory Last Values Hgb A1c (Clinic) 7.2 % (4.0-6.0) H 03/19/24 09:00 Assessment and Plan Assessment & Plan (1) Type 2 diabetes mellitus with hyperglycemia: Comment: dR. Tong Eye and lasik Code(s): E11.65 - Type 2 diabetes mellitus with hyperglycemia Qualifiers: Diabetes mellitus care home insulin use: without care home use Qualified Code(s): E11.65 - Type 2 diabetes mellitus with hyperglycemia Plan: Decrease the amount of carbohydrate intake, pasta, bread, rice and potatoes are all sugar and that is aside from all the sweet stuff, remember that fruits are good but they are Sweet also. Hemoglobin A1c goal of less than 6.5. On metformin a 1000 mg twice a day. Discussed with the patient that the A1c is much higher now and so will add Jardiance. (2) Barretts esophagus: Comment: November 2012 Dr. Kay July 2022 Code(s): K22.70 - Montez's esophagus without dysplasia Qualifiers: Montez's esophagus type: without dysplasia Qualified Code(s): K22.70 - Montez's esophagus without dysplasia Plan: Avoid the foods that causes that usually spicy foods, tomato products, juices, coffee, soda and foods that your sensitive to. After eating do not lie down, allow 3-4 hours before in lie down. And keep the head of bed above 30 degrees to avoid the acid from going up. On omeprazole 20 mg once a day (3) Asthma: Code(s): J45.909 - Unspecified asthma, uncomplicated Qualifiers: Asthma severity: mild Asthma persistence: intermittent Asthma complication type: uncomplicated Qualified Code(s): J45.20 - Mild intermittent asthma, uncomplicated Plan: Flovent and albuterol inhalers. (4) BPH (benign prostatic hyperplasia): Comment: Dr. Mccarthy Code(s): N40.0 - Benign prostatic hyperplasia without lower urinary tract symptoms Qualifiers: Lower urinary tract symptom presence: symptoms present Lower urinary tract symptom detail: urinary frequency Qualified Code(s): N40.1 - Benign prostatic hyperplasia with lower urinary tract symptoms; R35.0 - Frequency of micturition Plan: Patient follows up with urology follows up with PSA also on finasteride 5 mg once a day (5) Hypertension: Code(s): I10 - Essential (primary) hypertension Qualifiers: Hypertension type: essential hypertension Qualified Code(s): I10 - Essential (primary) hypertension Plan: Continue with blood pressure medication. Decrease salt intake and exercise on losartan 25 mg once a day (6) Hypercholesterolemia: Code(s): E78.00 - Pure hypercholesterolemia, unspecified Plan: Avoid fried foods, chicken skin, eggs, butter margarine, pastries and meat. Be it pork or beef they have a lot of cholesterol September 2023 last blood work LDL goal of less than 100. (7) Tubular adenoma of colon: Comment: 2019 dr. Kay Code(s): D12.6 - Benign neoplasm of colon, unspecified Plan: Patient's colonoscopy was done in 2019 and due for colonoscopy this year. EGD was done in 2021 Orders: Orders AMB Hemoglobin A1c Today E11.65 - Type 2 diabetes mellitus with hyperglycemia Referrals Gastroenterology Referral D12.6 - Benign neoplasm of colon, unspecified Medications: New empagliflozin (Jardiance) 10 mg PO DAILY 30 tabs 3RF E11.65 - Type 2 diabetes mellitus with hyperglycemia Coding Level of Care Code Est Pt Level 4 (60835) Diagnoses Type 2 diabetes mellitus with hyperglycemia, without long-term current use of insulin E11.65 Diabetes mellitus buttermaker continuous churn insulin use: without buttermaker continuous churn use Montez's esophagus without dysplasia K22.70 Montez's esophagus type: without dysplasia Mild intermittent asthma without complication J45.20 Asthma severity: mild Asthma persistence: intermittent Asthma complication type: uncomplicated Benign prostatic hyperplasia with urinary frequency N40.1; R35.0 Lower urinary tract symptom presence: symptoms present Lower urinary tract symptom detail: urinary frequency Essential hypertension I10 Hypertension type: essential hypertension Hypercholesterolemia E78.00 Tubular adenoma of colon D12.6
== END 2024-03-19 11:11 | disposition home or self-care (01) ==
PROVIDERS: PCP Internal Medicine; Visit Provider Internal Medicine
DX: E11.65 Type 2 diabetes mellitus with hyperglycemia (principal); K22.70 Barrett's esophagus without dysplasia; J45.20 Mild intermittent asthma, uncomplicated; N40.1 Benign prostatic hyperplasia with lower urinary tract symptoms; R35.0 Frequency of micturition; I10 Essential (primary) hypertension; E78.00 Pure hypercholesterolemia, unspecified; D12.6 Benign neoplasm of colon, unspecified
CPT/HCPCS: 83036; 99214

== ENCOUNTER 2024-08-17 08:46 | Day surgery (SDC) | payer OTHER, SELFPAY ==
[2024-08-12 14:54] VITALS: BMI 29.2
--- NOTE | 2024-08-13 10:12 | P.CONAN_ITS ---
Documented by User: Zahida Lance NP 08/13/24 10:13 HPI - Anesthesia Eval Consult details Narrative: 63yo M for Colonoscopy Anesthesia Pre-Procedure Meds Is the patient on any of the following meds?: SGLT2 Inhib PMFSH Active Problems Active Problems: All Active Problems Tubular adenoma of colon (Acute) Impacted cerumen of both ears (Acute) Annual physical exam (Acute) Anemia (Acute) Hypercholesterolemia (Acute) Hypertension (Acute) BPH (benign prostatic hyperplasia) (Acute) Asthma (Acute) GERD (gastroesophageal reflux disease) (Acute) Barretts esophagus (Acute) Type 2 diabetes mellitus with hyperglycemia (Acute) Past Medical History Medical History Hypercholesterolemia Vitamin D deficiency Hypertension BPH (benign prostatic hyperplasia) Asthma GERD (gastroesophageal reflux disease) Barretts esophagus Type 2 diabetes mellitus with hyperglycemia Family History Family History Father Prostate cancer Mother Stroke Brother Prostate cancer Family/Other Prostate cancer Diabetes Family history of problems with anesthesia: No Surgical History Surgical History History of esophagogastroduodenoscopy (EGD) H/O endoscopy History of colonoscopy History of Problems with Anesthesia: No Social History Social History Housing: House Alcohol intake: current Alcohol intake frequency: a few times a week Patient Tobacco Use Status: Never used Tobacco e-Cigarette/Vaping Use: Never Used Second Hand Smoke Exposure: No Current occupational status: employed Cognitive needs: No Hearing needs: No Vision needs: No Meds Allergies Allergy/AdvReac Type Severity Reaction Status Date / Time lisinopril Allergy Unknown cough Verified 03/19/24 08:59 Home Medications ?Medication ?Instructions ?Recorded ?Confirmed ?Last Taken ?Type albuterol sulfate 90 mcg/actuation 2 inh inhalation Q4-6H PRN Wheezing 09/22/20 08/12/24 Unknown History breath activated powder inhaler cholecalciferol (vitamin D3) 25 25 mcg PO DAILY 09/22/20 08/12/24 Unknown History mcg (1,000 unit) capsule finasteride 5 mg tablet 5 mg PO DAILY 09/22/20 08/12/24 Unknown History fluticasone propionate 110 2 puff inhalation BID 09/22/20 08/12/24 Unknown History mcg/actuation HFA aerosol inhaler (Flovent HFA) turmeric 100 mg-sharon 150 1 cap PO DAILY 09/19/23 08/12/24 08/10/24 History mg-olive 50 mg-oreg 150 mg-capryl capsule Exam Height,Weight and Vital Signs: Height 5 ft 9 in Weight 89.811 kg Assessment and Plan Assessment Anesthesia Assessment: Chart Reviewed Final Anesthetic Review Family History of Problems with Anesthesia: No History of Problems with Anesthesia: No Documented by User: Lala Lopez MD 08/17/24 11:34 HPI - Anesthesia Eval Anesthesia Pre-Procedure Meds Is the patient on any of the following meds?: SGLT2 Inhib (Last dose of empagl iflozin 08/13/24) If yes to any meds - educate patient: Pt education - increased risk of aspiration and/or euvolemic DKA PMFSH Past Medical History Medical History Hypercholesterolemia Vitamin D deficiency Hypertension BPH (benign prostatic hyperplasia) Asthma GERD (gastroesophageal reflux disease) Barretts esophagus Type 2 diabetes mellitus with hyperglycemia Family History Family History Father Prostate cancer Mother Stroke Brother Prostate cancer Family/Other Prostate cancer Diabetes Family history of problems with anesthesia: No Surgical History Surgical History History of esophagogastroduodenoscopy (EGD) H/O endoscopy History of colonoscopy History of Problems with Anesthesia: No Social History Social History Housing: House Alcohol intake: current Alcohol intake frequency: a few times a week Patient Tobacco Use Status: Never used Tobacco e-Cigarette/Vaping Use: Never Used Second Hand Smoke Exposure: No Current occupational status: employed Cognitive needs: No Hearing needs: No Vision needs: No Meds Allergies Allergy/AdvReac Type Severity Reaction Status Date / Time lisinopril Allergy Unknown cough Verified 03/19/24 08:59 Home Medications ?Medication ?Instructions ?Recorded ?Confirmed ?Last Taken ?Type albuterol sulfate 90 mcg/actuation 2 inh inhalation Q4-6H PRN Wheezing 09/22/20 08/12/24 Unknown History breath activated powder inhaler cholecalciferol (vitamin D3) 25 25 mcg PO DAILY 09/22/20 08/12/24 Unknown History mcg (1,000 unit) capsule finasteride 5 mg tablet 5 mg PO DAILY 09/22/20 08/12/24 Unknown History fluticasone propionate 110 2 puff inhalation BID 09/22/20 08/12/24 Unknown History mcg/actuation HFA aerosol inhaler (Flovent HFA) turmeric 100 mg-sharon 150 1 cap PO DAILY 09/19/23 08/12/24 08/10/24 History mg-olive 50 mg-oreg 150 mg-capryl capsule Exam Height,Weight and Vital Signs: Height 5 ft 9 in Weight 89.811 kg Vital Signs Temp Pulse Resp BP Pulse Ox O2 Del Method 08/17/24 09:46 97.3 F 68 16 128/66 98 Room Air Pertinent Lab Results Pertinent Lab Results: Lab Results 08/17/24 Range/Units 09:56 POC Glucose 122 H (60-115) mg/dL Airway Mallampati Class: III TM Dist: >3cm Neck ROM: Full Loose/Missing/Broken Teeth: Yes (Missing tooth top back right. Denies broken or loose teeth) Heart: RRR Lungs: CTAB Assessment and Plan Assessment Anesthesia Assessment: Anesthesia Plan Discussed and Chart Reviewed Final Anesthetic Review Family History of Problems with Anesthesia: No History of Problems with Anesthesia: No NPO: Yes ASA Class: III Final Preanesthetic Review: No Changes in Pt Med Stat, Meds/Allgs Chart Reviewed , Consent Obtained/Reviewed and Anes Risks/Benef Reviewed Patient Risk: Intermediate Procedure Risk: Low Assessment/Block/Sedation in SS: Assess/Block/Sedation-SS Anesthetic Plan Anesthetic Plan: TIVA Disposition: Standard PACU
--- OUTSIDE RECORDS SUMMARY | 2024-08-17 08:49 | XMS_ITS ---
Author Organization [facility] Address [address] [place] [id number] Care Team Providers Care It Administrator Name Role Phone Alden Palacios MD Primary Care Provider Rodrigo Chun Jr REASON FOR VISIT please lock 07-22-2024 office note Encounters Encounter Location Date Provider Diagnosis [facility] [address] [place] [id number] 08/11/2024 Rodrigo Kay Jr PLAN OF TREATMENT Next Appt Details Provider Name:Rodrigo madsen Jr, 08/17/2024 10:40:00 AM, [address] [place] [address] , [place], [place], [phone],
--- OUTSIDE RECORDS SUMMARY | 2024-08-17 08:49 | XMS_ITS | Patient Health Record ---
Author Organization [facility] Address [address] [place] [address] Care Team Providers Care Golf Ball Inspector Name Role Phone Po Alden MAYER Primary Care Provider Rodrigo Chun Jr Unavailable ALLERGIES Allergen (clinical drug ingredient) Drug/Non Drug Allergy documented on EMR Reaction Allergy Type Onset Date Status cat dander allergenic extract / cat skin extract cat hair (uncoded) Unknown Allergy Active REASON FOR REFERRAL No Information MEDICATIONS Medication SIG (Take, Route, Frequency, Duration) Notes Start Date End Date Status metFORMIN HCl 1000 MG 1 tablet with a me al Orally twice times a day Active Atorvastatin Calcium 10 MG 1 tablet Orally Once a day Active Vitamin D3 50 MCG (1999) 1 capsule Orally Once a day Active Losartan Potassium 25 MG 1 tablet Orally Once a day for 30 day(s) Active Albuterol Sulfate as needed No t-Taking Jardiance 10 MG TAKE ONE TABLET BY MOUTH EVERY DAY Oral for 90 Active MiraLax (colon prep) 17 GM/SCOOP mixed with Gatorade or Crystal Light Orally begin at 5:00 p.m. the day before the procedure for 1 day 07/22/2024 Active flovent HFA as needed Not-Taki ng Turmeric 500 MG as directed Orally Active Vitamin B-12 1000 MCG 1 tablet Orally weekly Active Olopatadine HCl 0.1 % 1 drop into affect ed eye Ophthalmic Twice a day Active Omeprazole 20 MG TAKE ONE CAPSULE BY MOUTH EVERY DAY for 90 Active Finasteride 5 MG 1 tablet Orally Once a day Active IMMUNIZATIONS Vaccine Route Administration Date Status Comme nts Influenza Unknown 09/03/2018 Administered Influenza Unknown 09/25/2021 Administered SOCIAL HISTORY Sex Assigned At : Social History Observation Description Sex Assigned At Unknown Alcohol Screen Question Answer Notes Did you have a drink contain ing alcohol in the past year? Yes How often did you have a dri nk containing alcohol in the past year? 2 to 4 times a month (2 points) How many drinks did you have on a typical day when you were drinking in the past year? 3 or 4 drinks (1 point) How often did you have 6 or more drinks on one occasion in the past year? Monthly (2 points) Points 5 Interpretation Positive PROBLEMS Problem Type ICD Code Onset Dates Problem Status W/U Status Risk SNOMED Code Notes Problem Colon cancer screening (Z12.11) Active confirmed 962041679 Problem Montez's esophagus without dysplasia (K22.70) Active confirmed 196393735 Problem Diverticulosis of large intestine without hemorrhage (K57.30) Active confirmed 169157420 Problem Long-term use of aspirin therapy (Z79.82) Active confirmed 959116476 Problem Long-term current use of high risk medication other than anticoagulant (Z79.899) Active confirmed 081650738 Problem skilled nursing (current) use of oral hypoglycemic drugs (Z79.84) Active confirmed 442998102638155 VITAL SIGNS Blood pressure diastolic 00 mm Hg 07/22/2024 Height 69 in 07/22/2024 Blood pressure systolic 00 mm Hg 07/22/2024 Weight 198 lbs 07/22/2024 BMI 29.24 kg/m2 07/22/2024 Encounters Encounter Location Date Provider Diagnosis [facility] Outpatient [address] [place] [id number] 08/17/2024 Rodrigo Kay Jr [facility] [address] [place] [phone] 07/22/2024 Rodrigo Kay Jr Colon cancer screening Z12.11 ; Montez's esophagus without dysplasia K22.70 ; skilled nursing (current) use of oral hypoglycemic drugs Z79.84 and Long-term current use of high risk medication other than anticoagulant Z79.899 [facility] [address] [place] [phone] 08/11/2024 Rodrigo Kay Jr ASSESSMENTS Encounter Date Diagnosis Assessment Notes Treatment Notes Treatment Clinical Notes 07/22/2024 Colon cancer screening (ICD-10 - Z12.11) Colonoscopy material was printed 07/22/2024 Montez's esophagus without dysplasia (ICD-10 - K22.70) 07/22/2024 skilled nursing (current) use of oral hypoglycemic drugs (ICD-10 - Z79.84) 07/22/2024 Long-term current use of high risk medication other than anticoagulant (ICD-10 - Z79.899) PLAN OF TREATMENT Future Test Test Name Order Date UPPER GI ENDOSCOPY 05/28/2012 COLONOSCOPY 05/28/2012 UPPER GI ENDOSCOPY 01/04/2016 UPPER GI ENDOSCOPY 11/19/2018 COLONOSCOPY 11/19/2018 UPPER GI ENDOSCOPY 04/22/2022 COLONOSCOPY 07/22/2024 Next Appt Details Provider Name:Rodrigo madsen , 08/17/2024 10:40:00 AM, [address] [place] [address] , [place], [place], [phone], Insurance Providers Payer Name Payer Address Payer Phone Subscriber Number Group Number Insured Name Patient Relationship to Insured Coverage Start Date Coverage End Date [address] [address] [id number] JOHNATHON DAY Self - patient is the insured MEDICAL (GENERAL) HISTORY Medical History History ICD Code Montez's Esophagus, EGD 06/24, three-yea r recall Hiatal Hernia Duodenitis BPH, PSA 2.8 on 07/16, MR for prostate wa s negative 07/27 Asthma Diabetes mellitus type 2 Colonoscopy 03/21, five-year followup due to personal history of colon polyps Surgical History Surgery Date(Month/Year) dental inplant
--- OUTSIDE RECORDS SUMMARY | 2024-08-17 08:49 | XMS_ITS ---
Author Organization [facility] Address [address] [place] [phone] Care Team Providers Care Plaster Block Layer Name Role Phone Alden Palacios MD Primary Care Provider Rodrigo Chun Jr Unavailable ALLERGIES Allergen (clinical drug ingredient) Drug/Non Drug Allergy documented on EMR Reaction Allergy Type Onset Date Status cat dander allergenic extract / cat skin extract cat hair (uncoded) Unknown Allergy Active REASON FOR VISIT Patient presents today for a colon screening MEDICATIONS Medication SIG (Take, Route, Frequency, Duration) Notes Start Date End Date Status metFORMIN HCl 1000 MG 1 tablet with a me al Orally twice times a day Active Atorvastatin Calcium 10 MG 1 tablet Orally Once a day Active Losartan Potassium 25 MG 1 tablet Orally Once a day for 30 day(s) Active Omeprazole 20 MG TAKE ONE CAPSULE BY MOUTH EVERY DAY for 90 Active Finasteride 5 MG 1 tablet Orally Once a day Active Turmeric 500 MG as directed Orally Active Vitamin B-12 1000 MCG 1 tablet Orally weekly Active Olopatadine HCl 0.1 % 1 drop into affect ed eye Ophthalmic Twice a day Active Vitamin D3 50 MCG (2000 UT) 1 capsule Orally Once a day Active Albuterol Sulfate as needed No t-Taking Jardiance 10 MG TAKE ONE TABLET BY MOUTH EVERY DAY Oral for 90 Active MiraLax (colon prep) 17 GM/SCOOP mixed with Gatorade or Crystal Light Orally begin at 5:00 p.m. the day before the procedure for 1 day 07/22/2024 Active flovent HFA as needed Not-Corrine martinez SOCIAL HISTORY Sex Assigned At : Social [...] W/U Status Risk SNOMED Code Notes Problem FDC (current) use of oral hypoglycemic drugs (Z79.84) Active confirmed 217247402656196 Problem Long-term current use of high risk medication other than anticoagulant (Z79.899) Active confirmed 609639179 VITAL SIGNS BMI 29.24 kg/m2 07/22/2024 Blood pressure systolic 00 mm Hg 07/22/20 24 Blood pressure diastolic 00 mm Hg 024 Height 69 in 07/22/2024 Weight 198 lbs 07/22/2024 Encounters Encounter Location Date Provider Diagnosis [facility] [address] [place] [address] 07/22/2024 Rodrigo Kay Jr Colon cancer screening Z12.11 ; Montez's esophagus without dysplasia K22.70 ; assistant terminal manager (current) use of oral hypoglycemic drugs Z79.84 and Long-term current use of high risk medication other than anticoagulant Z79.899 ASSESSMENTS Encounter Date Diagnosis Assessment Notes Treatment Notes Treatment Clinical Notes 07/22/2024 Colon cancer screening (ICD-10 - Z12.11) Colonoscopy material was printed 07/22/2024 Montez's esophagus without dysplasia (ICD-10 - K22.70) 07/22/2024 assistant terminal manager (current) use of oral hypoglycemic drugs (ICD-10 - Z79.84) 07/22/2024 Long-term current use of high risk medication other than anticoagulant (ICD-10 - Z79.899) PLAN OF TREATMENT Medication Medication Name Sig Start Date Stop Date Notes MiraLax (colon prep) 17 GM/SCOOP mixed with Gatorade or Crystal Light Orally begin at 5:00 p.m. the day before the procedure for 1 day 07/22/2024 Treatment Notes Assessment Notes Colon cancer screening Colonoscopy mater ial was printed Future Test Test Name Order Date COLONOSCOPY 07/22/2024 Next Appt Details Follow Up: 1 Year, Reason: Provider Name:Rodrigo madsen Jr, 08/17/2024 10:40:00 AM, [address] [place] [address], [phone],
--- OUTSIDE RECORDS SUMMARY | 2024-08-17 08:49 | XMS_ITS ---
Author Organization [facility] [place] [facility] Address [address] [place] [address] Care Team Providers Care Weight Reduction Specialist Name Role Phone Po Alden MAYER Primary Care Provider Rodrigo Chun Jr REASON FOR VISIT screening Encounters Encounter Location Date Provider Diagnosis [facility] Outpatient [address] [place] [phone] 08/17/2024 Rodrigo Kay Jr PLAN OF TREATMENT Next Appt Details Provider Name:Rodrigo madsen Jr, 08/17/2024 10:40:00 AM, [address] [place] [address], [phone],
[2024-08-17 09:40] VITALS: BMI 28.4
[2024-08-17 09:46] VITALS: BP 128/66; PULSE 68; RESP 16; TEMP 36.3; O2SAT 98
[2024-08-17 10:00] LABS: Glucose, Whole Blood 122 mg/dL (60-115)
[2024-08-17] MEDS: Lactated Ringers 1,000 ML 100 ML IVCONT (10:13)
--- NOTE | 2024-08-17 10:37 | MHC.SHP ---
Pre-Procedural Eval Section A - 24 Hr Update-Section A only Date of Service: 08/17/24 The patient is an INPATIENT: No Changes since office visit: No Cold of Flu in the past 2 weeks, No New Medical Problems, No Changes in Medication and No Patient answered all questions The patient has been examined within 24 hours of the surgical procedure. The History & Physical has been completed within 30 days and I have reviewed it.: Yes Section B - Complete if H&P > 30 days Chief Complaint: screening Allergies: Allergies Allergy/AdvReac Type Severity Reaction Status Date / Time lisinopril Allergy Unknown cough Verified 03/19/24 08:59 Plan I have reviewed the history and physical and performed a pertinent physical examination on my patient. No changes have occurred unless specified. Time Spent With Patient Time: Total time managing care of this patient today ____ minutes.
[2024-08-17 11:31] VITALS: BP 112/62; PULSE 71; RESP 12; TEMP 36.3; O2SAT 98
[2024-08-17 11:46] VITALS: BP 109/66; PULSE 63; RESP 12; TEMP 36.3; O2SAT 98
--- NOTE | 2024-08-17 11:59 | OP_ITS ---
DATE OF SERVICE: 08/17/2024 SURGEON: Rodrigo Kay MD INDICATIONS: Colon cancer screening and prior history of colon polyps. PREOPERATIVE DIAGNOSIS: POSTOPERATIVE DIAGNOSIS: PROCEDURE PERFORMED: Colonoscopy to the cecum with biopsy. ESTIMATED BLOOD LOSS: COMPLICATIONS: ANESTHESIA: Monitored anesthesia care. ASSISTANTS: SPECIMENS: DESCRIPTION OF PROCEDURE: A history and physical was performed. The risks and benefits of the procedure were explained to the patient and informed consent was obtained. The patient was placed in the left lateral decubitus position. A digital rectal exam was performed and was found to be normal. The Olympus pediatric video colonoscope was introduced into the rectum and advanced to the cecum. The cecum was identified by transillumination, palpation, and identification of ileocecal valve. Examination was performed and the scope was removed. He tolerated the procedure well and was returned to recovery area in stable condition. FINDINGS: The terminal ileum was examined and appeared normal. The visualized colonic mucosa was normal. The quality of the prep was good. Two polyps were identified at 60 cm and removed with biopsy forceps, both measured less than 10 mm. No other polyps were seen. There was mild sigmoid diverticulosis. Retroflexed examination showed some moderate-sized internal hemorrhoids. IMPRESSION: Colon polyps. RECOMMENDATION: Follow up the biopsy results. MD CECE Peoples/LETICIA / [id number]
== END 2024-08-17 12:27 | disposition home or self-care (01) ==
PROVIDERS: PCP Internal Medicine; Visit Provider Internal Medicine Gastroenterology
PROC: 0DJD8ZZ Inspection of Lower Intestinal Tract, Via Natural or Artificial Opening Endoscopic (ICD-10-PCS; CPT 45378; principal; 2024-08-17 10:40)
DX: Z12.11 Encounter for screening for malignant neoplasm of colon (principal); Z86.0101 Personal history of adenomatous and serrated colon polyps; D12.4 Benign neoplasm of descending colon; K57.30 Diverticulosis of large intestine without perforation or abscess without bleeding; K64.8 Other hemorrhoids; K22.70 Barrett's esophagus without dysplasia; K44.9 Diaphragmatic hernia without obstruction or gangrene; E11.9 Type 2 diabetes mellitus without complications; J45.909 Unspecified asthma, uncomplicated; Z79.51 Long term (current) use of inhaled steroids; Z79.899 Other long term (current) drug therapy; Z79.84 Long term (current) use of oral hypoglycemic drugs; Z98.890 Other specified postprocedural states
CPT/HCPCS: 45380; 82947; 88305; J2003; J2704; J2765

== ENCOUNTER 2024-09-15 06:44 | Outpatient (REF) | payer OTHER, SELFPAY ==
[2024-09-15 06:59] LABS: MANUAL DIFF FLAG NO
[2024-09-15 07:27] LABS: Basophils Percent Auto 0.3 % (0-2); Eosinophils Absolute Auto 0.2 X10*3/uL (0.0-0.4); Eosinophils Percent Auto 2.8 % (0-4); Hematocrit 41.5 % (42.0-52.0); Hemoglobin 13.7 g/dl (14.0-18.0); Imm Gran Abs Auto 0.03 X10*3/uL (0.00-0.03); Imm Gran Pct Auto 0.4 % (0.0-0.4); Lymphocytes Absolute Auto 2.6 X10*3/uL (1.2-4.9); Lymphocytes Percent Auto 38.1 % (20-40); Mean Corpuscular Hemoglobin 29.6 pg (27.0-33.0); Mean Corpuscular Volume 89.6 fL (80.0-98.0); Mean Platelet Volume 10.4 fL (9.4-12.4); Monocytes Absolute Auto 0.6 X10*3/uL (0.1-1.2); Monocytes Percent Auto 8.4 % (2-11); Neutrophils Absolute Auto 3.4 x10*3/uL (2.0-8.3); Platelet Count 215 X10*3/uL (160-400); Red Blood Count 4.63 X10*6/uL (4.60-5.80); Red Cell Distribution Width 13.2 % (11.0-16.0); White Blood Count 6.8 X10*3/uL (4.8-10.8)
[2024-09-15 07:41] LABS: Estimated Average Glucose 143 mg/dL; Hemoglobin A1C 177.1663 umol/L; Hemoglobin A1c % 6.6 % (<6.0); Total Hemoglobin (HGBA1C) 3626.8338 umol/L
[2024-09-15 07:48] LABS: Alanine Aminotransferase 19 U/L (0-40); Albumin Level 4.4 g/dL (3.5-5.0); Alkaline Phosphatase 56 U/L (39-117); Anion Gap 13 (12-20); Aspartate Amino Transferase 16 U/L (5-37); Bilirubin Total 0.6 mg/dL (0.0-1.0); Blood Urea Nitrogen 15 mg/dL (9-16); Calcium 9.9 mg/dL (8.4-10.2); Carbon Dioxide 26 mmol/L (22-29); Chloride 102 mmol/L (96-108); Cholesterol 132 mg/dL (<200); Estimated Glomerular Filt Rate > 60; Glucose Random 117 mg/dL (60-115); HDL Cholesterol 53 mg/dL (>40); LDL Cholesterol Calculated 66 mg/dL (<100); Potassium 3.6 mmol/L (3.3-5.1); Sodium 137 mmol/L (135-145); Total Protein 6.9 g/dL (6.5-8.0); Triglycerides 67 mg/dL (<150)
[2024-09-15 08:08] LABS: Free T4 (Free Thyroxine) 0.97 ng/dL (0.71-1.85); Thyroid Stimulating Hormone 1.69 uIU/mL (0.32-4.0)
[2024-09-15 08:11] LABS: Folate 11.8 ng/mL (> or = 4.0); Vitamin B12 477 pg/mL (200-900)
[2024-09-15 08:23] LABS: Creatinine Urine 17.48 mg/dL; Microalbumin Urine < 5.0 mg/L
== END 2024-09-15 06:45 | disposition home or self-care (01) ==
LOC: HO.LAB 06:44
PROVIDERS: PCP Internal Medicine; Visit Provider Internal Medicine
DX: E11.65 Type 2 diabetes mellitus with hyperglycemia (principal); E78.00 Pure hypercholesterolemia, unspecified
CPT/HCPCS: 36415; 80053; 80061; 82043; 82570; 82607; 82746; 83036; 84153; 84439; 84443; 85025

== ENCOUNTER 2024-09-22 08:57 | Outpatient (AMB) | payer OTHER, SELFPAY ==
[2024-09-22 09:04] VITALS: BP 118/68; PULSE 65; O2SAT 97; BMI 29.5
--- NOTE | 2024-09-22 09:04 | MHC.PC.OV ---
Vital Signs 09/22/24 09:04 Height 5 ft 8 in Weight 194 lb BMI 29.5 BP 118/68 Blood Pressure Location Lt brachial Position Sitting Pulse 65 Pulse Source Pulse Oximeter Pulse Oximetry (%) 97 Oxygen Delivery Method Room Air Intake Visit Reasons: Annual exam Allergies lisinopril Allergy (Unknown, Verified 09/22/24 09:04) cough Medication List - Last Reconciled 09/22/24 by Alden Palacios MD albuterol sulfate 90 mcg/actuation 2 inhalations inhalation Q4-6H PRN atorvastatin 10 mg PO DAILY blood sugar diagnostic (Surveypal Ultra Blue Test Strip) As directed check the blood sugar once a day cholecalciferol (vitamin D3) 25 mcg PO DAILY cyanocobalamin (vitamin B-12) 1,000 mcg PO .once a week empagliflozin (Jardiance) 10 mg PO DAILY finasteride 5 mg PO DAILY fluticasone propionate 110 mcg/actuation (Flovent HFA) 2 puffs inhalation BID lancets (Surveypal Delica Plus Lancet) As directed check the BS QD losartan 25 mg PO DAILY metformin 1,000 mg PO BID olopatadine 0.1% 1 drp ophthalmic (eye) BID omeprazole 20 mg PO DAILY drpdmsek-kqox-zocfv-oreg-capry 100 mg-150 mg- 50 mg-150 mg 1 cap PO DAILY Tobacco use date assessed: 03/19/24 Dental Screening Dental Screen Date: 03/19/24 HPI Annual exam HPI Details 63-year-old overweight male with diabetes mellitus Barretts esophagus asthma BPH hypertension hypercholesterolemia last seen in March 2024. Patient is here for physical exam: Colon Tests August 2024. Patient was also seen by Urology July 20 PSA elevated prostate MRI revealing 33.8 g of prostate no evidence of adenopathy continue to be monitored [facility] Medical History Hypercholesterolemia Vitamin D deficiency Hypertension BPH (benign prostatic hyperplasia) Asthma GERD (gastroesophageal reflux disease) Barretts esophagus Type 2 diabetes mellitus with hyperglycemia Surgical History History of esophagogastroduodenoscopy (EGD) H/O endoscopy History of colonoscopy Family History (Updated 09/22/24 @ 09:05 by Marti Stokes CMA) Father Prostate cancer Mother Stroke Brother Prostate cancer Family/Other Prostate cancer Diabetes Social History (Updated 09/22/24 @ 09:40 by Alden Palacios MD) Housing: House Alcohol intake: current Alcohol intake frequency: a few times a week Comment: once to twice a week 3 drinks Patient Tobacco Use Status: Never used Tobacco Tobacco use type: Cigarette e-Cigarette/Vaping Use: Never Used Second Hand Smoke Exposure: No Current occupational status: employed Cognitive needs: No Hearing needs: No Vision needs: Yes Questionnaire PHQ-9 Over the last 2 weeks, how often have you been bothered by any of the following problems? 1. Little interest or pleasure in doing things: not at all 2. Feeling down, depressed, or hopeless: not at all 3. Trouble falling or staying asleep, or sleeping too much: not at all 4. Feeling tired or having little energy: not at all 5. Poor appetite or overeating: not at all 6. Feeling bad about yourself - or that you are a failure or have let yourself or your family down: not at all 7. Trouble concentrating on things, such as reading the newspaper or watching television: not at all 8. Moving or speaking so slowly that other people could have noticed. Or the opposite - being so fidgety or restless that you have been moving around a lot more than usual: not at all 9. Thoughts that you would be better off or of hurting yourself in some way: not at all Total score: 0 Depression Screening Interpretation: Negative Depression Screening Done: Yes Source: Developed by Drs. Justo Michaud, Sheyla Mcgee, Everett Valentin and colleagues, with an educational samina from [employer]. Thrive Questionnaire Date Thrive assessed: 09/22/24 I am a: Patient What is your living situation today?: I choose not to answer this question Within the past 12 months, did the food you bought not last and you didn't have the money to get more?: I choose not to answer this question Within the past 12 months, did you worry whether your food would run out before you got money to buy more?: I choose not to answer this question Do you have trouble paying for medicines?: I choose not to answer this question Do you have trouble getting transportation to medical appointments?: I choose not to answer this question Do you have trouble paying your heating and electricity bill?: I choose not to answer this question Do you have trouble taking care of your child, family member or friend?: I choose not to answer this question Do you have trouble with day-to-day activities such as bathing, preparing meals, shopping, managing finances, etc.?: I choose not to answer this question Are you currently unemployed and looking for a job?: I choose not to answer this question Are you interested in more education?: I choose not to answer this question Please select the resources that you would like help with: None Currently or been in a relationship where the following occur: I choose not to answer THRIVE Score: 0 AUDIT C Alcohol Use Questionnaire (AUDIT-C) 1. How often do you have a drink containing alcohol?: 2-3 times a week 2. How many drinks containing alcohol do you have on a typical day when you are drinking?: 3 or 4 3. How often do you have six or more drinks on one occasion?: Less than monthly Total Score: 5 DEBBIE-7 AMB Questionnaire DEBBIE-7 Date DEBBIE - 7 assessed: 09/22/24 Feeling nervous, anxious, or on edge: 0 = Not at all Not being able to stop or control worryin = Not at all Worrying too much about different things: 0 = Not at all Trouble relaxin = Not at all Being so restless that it is hard to sit still: 0 = Not at all Becoming easily annoyed or irritable: 0 = Not at all Feeling afraid as if something awful might happen: 0 = Not at all Total DEBBIE-7 score (0-4 normal; 5-9 mild; 10-14 moderate; 15-21 severe): 0 Source: Developed by Drs. Justo Michaud, Sheyla Mcgee, Everett Valentin and colleagues, with an educational samina from [employer]. Review of Systems Const Denies poor appetite and Denies weakness Eyes Denies no additional complaints ENT Reports Normal hearing present, Denies dizziness, Denies nasal congestion, Denies tinnitus and Denies sore throat Card Denies chest pain, Denies syncope, Denies rapid heart rate and Denies dyspnea Resp Denies cough and Denies dyspnea GI Denies change in stool character, Reports constipation, Denies diarrhea, Denies nausea and Denies vomiting Denies dysuria and Denies urinary frequency Neuro Reports Normal hearing present, Denies confusion, Denies dizziness, Denies syncope and Denies weakness Psych Denies confusion Physical exam (Primary Care) Vital Signs: Last Vital Signs Pulse 65 09/22/24 09:04 BP 118/68 09/22/24 09:04 Pulse Ox 97 09/22/24 09:04 Oxygen Delivery Method Room Air 09/22/24 09:04 BMI result Body Mass Index 29.5 Tobacco/Smoking Status: Tobacco use Status Tobacco use date assessed 03/19/24 09/22/24 09:05 Patient Tobacco Use Status Never used Tobacco 09/22/24 09:05 Tobacco use type Cigarette 09/22/24 09:05 e-Cigarette/Vaping Use Never Used 09/22/24 09:05 PHQ-9: PHQ-9 Score PHQ-9: Total score 0 09/22/24 09:18 Depression Screening Interpretation: Negative Thrive Assessment: Date of Thrive Assessment Date Thrive assessed 09/22/24 09/22/24 09:05 Currently or been in a relationship where the following occur: I choose not to answer Const General: No confusion Orientation/consciousness: No confusion HENMT Head: Yes normocephalic Ears: external ears normal and TM's normal bilaterally Face and sinus: Yes normal facial exam Mouth: moist mucous membranes Throat: Yes tonsils normal Eyes Conjunctivae: conjunctivae normal Pupils: Equal, round and reactive pupils present and Pupil accommodation reflex normal Direct Ophthalmoscopy: normal light reflex Neck Neck: No lymphadenopathy Thyroid: Thyroid normal Chest Chest palpation & inspection: normal inspection of the chest Resp Effort & Inspection: normal respiratory effort and no audible wheezes Auscultation: clear to auscultation bilaterally, no crackles, no wheezes and lung sounds not diminished Cardio Rate: regular rate Rhythm: regular rhythm Peripheral pulses: radial pulses present and dorsalis pedis present GI Other: colon test recently Palpation (GI): no masses Auscultation: normal bowel sounds and normoactive bowel sounds Rectal Exam - Male: Yes deferred Male General Exam: Yes normal external exam Skin General skin exam: no rashes or lesions noted Rashes: no rashes Neuro General: No confusion Cranial nerves: Yes Equal, round and reactive pupils present and Yes Normal hearing present Cognition (Neuro): normal cognition Gait exam (Neuro): Normal gait present Motor exam (neuro): 5/5 motor strength present throughout Deep tendon reflexes (DTR's): Right brachioradialis reflex intensity grade: 2+, Left brachioradialis reflex intensity grade: 2+, Right patellar reflex intensity grade: 2+ and Left patellar reflex intensity grade: 2+ Extrem General: No edema Office Procedures Flu Questionnaire Does the patient have a severe egg allergy?: No Does the patient have severe life threatening allergies?: No Does the patient have a fever or illness today?: No Has the patient ever had Guillain-Ashkum Syndrome?: No Has the patient ever had any past reaction to a flu shot?: No Immunizations Fluarix Triv [id number] (PF) 45 mcg (15 mcg x 3)/0.5 mL IM syringe Performing Provider: Alden Palacios MD [place] [facility] [place] [facility] [place] [facility] Administered by: Marti Stokes CMA on 09/22/24 09:18 Dose Route Admin Location Dispensed Lot Number Expiration Date [facility] Polisher Dial 0.5 mL IM Left Deltoid 0.5 mL [id number] 05/02/25 [id number] [employer] VIS Given Date VIS Provided VIS Publication Date 09/22/24 Single Vaccine 21 Eligibility Eligibility Date Funding Source Not [facility] Eligible 09/22/24 Private Coding Level of Care Code Est Pt Prev Care 40-64y(47063) Diagnoses Annual physical exam Z00.00 Tubular adenoma of colon D12.6 Other dietary vitamin B12 deficiency anemia D51.3 Anemia type: B12 deficiency Vitamin B12 deficiency anemia type: other dietary B12 deficiency Type 2 diabetes mellitus with hyperglycemia, without long-term current use of insulin E11.65 Diabetes mellitus usp insulin use: without usp use Montez's esophagus without dysplasia K22.70 Montez's esophagus type: without dysplasia Mild intermittent asthma without complication J45.20 Asthma severity: mild Asthma persistence: intermittent Asthma complication type: uncomplicated Benign prostatic hyperplasia with urinary frequency N40.1; R35.0 Lower urinary tract symptom presence: symptoms present Lower urinary tract symptom detail: urinary frequency Essential hypertension I10 Hypertension type: essential hypertension Hypercholesterolemia E78.00 Assessment & Plan Assessment & Plan (1) Annual physical exam: Code(s): Z00.00 - Encounter for general adult medical examination without abnormal findings Category: Medical Plan: Patient is advised to eat healthy, keep well hydrated, keep active and have adequate sleep. (2) Tubular adenoma of colon: Comment: 2018 dr. Kay, August 2024 9 years Code(s): D12.6 - Benign neoplasm of colon, unspecified Category: Medical Plan: Patient is up-to-date with colonoscopy (3) Anemia: Code(s): D64.9 - Anemia, unspecified Category: Medical Qualifiers: Anemia type: B12 deficiency Vitamin B12 deficiency anemia type: other dietary B12 deficiency Qualified Code(s): D51.3 - Other dietary vitamin B12 deficiency anemia Plan: Stable (4) Type 2 diabetes mellitus with hyperglycemia: Comment: dR. Alycia Rosales and lasik Code(s): E11.65 - Type 2 diabetes mellitus with hyperglycemia Category: Medical Qualifiers: Diabetes mellitus ferry terminal supervisor insulin use: without ferry terminal supervisor use Qualified Code(s): E11.65 - Type 2 diabetes mellitus with hyperglycemia Plan: Decrease the amount of carbohydrate intake, pasta, bread, rice and potatoes are all sugar and that is aside from all the sweet stuff, remember that fruits are good but they are Sweet also. Hemoglobin A1c goal of less than 6.5 patient is on Jardiance and metformin (5) Barretts esophagus: Comment: November 2012 Dr. Kay July 2022 Code(s): K22.70 - Montez's esophagus without dysplasia Category: Medical Qualifiers: Montez's esophagus type: without dysplasia Qualified Code(s): K22.70 - Montez's esophagus without dysplasia Plan: Avoid the foods that causes that usually spicy foods, tomato products, juices, coffee, soda and foods that your sensitive to. After eating do not lie down, allow 3-4 hours before in lie down. And keep the head of bed above 30 degrees to avoid the acid from going up. (6) Asthma: Code(s): J45.909 - Unspecified asthma, uncomplicated Category: Medical Qualifiers: Asthma severity: mild Asthma persistence: intermittent Asthma complication type: uncomplicated Qualified Code(s): J45.20 - Mild intermittent asthma, uncomplicated Plan: Continue with albuterol inhaler and Flovent (7) BPH (benign prostatic hyperplasia): Comment: Dr. Mccarthy Code(s): N40.0 - Benign prostatic hyperplasia without lower urinary tract symptoms Category: Medical Qualifiers: Lower urinary tract symptom presence: symptoms present Lower urinary tract symptom detail: urinary frequency Qualified Code(s): N40.1 - Benign prostatic hyperplasia with lower urinary tract symptoms; R35.0 - Frequency of micturition Plan: Patient is being followed up by Urology continue to follow-up PSA on finasteride (8) Hypertension: Code(s): I10 - Essential (primary) hypertension Category: Medical Qualifiers: Hypertension type: essential hypertension Qualified Code(s): I10 - Essential (primary) hypertension Plan: Continue with blood pressure medication. Decrease salt intake and exercise on losartan 25 mg once a day (9) Hypercholesterolemia: Code(s): E78.00 - Pure hypercholesterolemia, unspecified Category: Medical Plan: Avoid fried foods, chicken skin, eggs, butter margarine, pastries and meat. Be it pork or beef they have a lot of cholesterol LDL goal of less than 100 and triglyceride of less than 150 on atorvastatin 10 mg once a day Orders: Orders Influenza [id number] Immunization Today Z23 - Encounter for immunization Medications: Changed From empagliflozin (Jardiance) 10 mg PO DAILY 90 tabs 0RF E11.65 - Type 2 diabetes mellitus with hyperglycemia To empagliflozin 25 mg PO DAILY 90 tabs 0RF E11.65 - Type 2 diabetes mellitus with hyperglycemia
== END 2024-09-22 09:55 | disposition home or self-care (01) ==
PROVIDERS: PCP Internal Medicine; Visit Provider Internal Medicine
DX: Z00.00 Encounter for general adult medical examination without abnormal findings (principal); D12.6 Benign neoplasm of colon, unspecified; D51.3 Other dietary vitamin B12 deficiency anemia; E11.65 Type 2 diabetes mellitus with hyperglycemia; K22.70 Barrett's esophagus without dysplasia; J45.20 Mild intermittent asthma, uncomplicated; N40.1 Benign prostatic hyperplasia with lower urinary tract symptoms; R35.0 Frequency of micturition; I10 Essential (primary) hypertension; E78.00 Pure hypercholesterolemia, unspecified; Z23 Encounter for immunization

== ENCOUNTER → 2024-09-22 08:57 | Outpatient (BNVA) | payer OTHER, SELFPAY | PROVIDERS: PCP Internal Medicine; Visit Provider Internal Medicine | DX: Z00.00 Encounter for general adult medical examination without abnormal findings (principal); Z23 Encounter for immunization; D21.6 Benign neoplasm of connective and other soft tissue of trunk, unspecified; D51.3 Other dietary vitamin B12 deficiency anemia; E11.65 Type 2 diabetes mellitus with hyperglycemia; K22.70 Barrett's esophagus without dysplasia; J45.20 Mild intermittent asthma, uncomplicated; N40.1 Benign prostatic hyperplasia with lower urinary tract symptoms; R35.0 Frequency of micturition; I10 Essential (primary) hypertension; E78.00 Pure hypercholesterolemia, unspecified | CPT/HCPCS: 90471; 90656; 96127; 99396 ==

== ENCOUNTER 2025-01-05 08:45 | Outpatient (AMB) | payer OTHER, SELFPAY ==
[2025-01-05 09:03] VITALS: BP 122/78; PULSE 67; O2SAT 96; BMI 29.3
--- NOTE | 2025-01-05 09:03 | A.OFFPC_ITS ---
Vital Signs 01/05/25 09:03 Height 5 ft 8 in Weight 193 lb BMI 29.3 BP 122/78 Blood Pressure Location Lt brachial Position Sitting Pulse 67 Pulse Source Pulse Oximeter Pulse Oximetry (%) 96 Oxygen Delivery Method Room Air Intake Visit Reasons: DM Allergies lisinopril Allergy (Unknown, Verified 01/05/25 09:03) cough Tobacco use date assessed: 01/05/25 Dental Screening Dental Screen Date: 01/05/25 Did you have a dental visit in the last 12 months?: Yes Did you have a dental problem in the last 6 months where you did not have access to dental care?: No Was dental information given to patient?: Patient has dentist [facility] Medical History Hypercholesterolemia Vitamin D deficiency Hypertension BPH (benign prostatic hyperplasia) Asthma GERD (gastroesophageal reflux disease) Barretts esophagus Type 2 diabetes mellitus with hyperglycemia Surgical History History of esophagogastroduodenoscopy (EGD) H/O endoscopy History of colonoscopy Family History (Updated 09/22/24 @ 09:05 by Marti Stokes CMA) Father Prostate cancer Mother Stroke Brother Prostate cancer Family/Other Prostate cancer Diabetes Social History (Updated 09/22/24 @ 09:40 by Alden Palacios MD) Housing: House Alcohol intake: current Alcohol intake frequency: a few times a week Comment: once to twice a week 3 drinks Patient Tobacco Use Status: Never used Tobacco Tobacco use type: Cigarette e-Cigarette/Vaping Use: Never Used Second Hand Smoke Exposure: No Current occupational status: employed Cognitive needs: No Hearing needs: No Vision needs: Yes Questionnaire PHQ-9 Over the last 2 weeks, how often have you been bothered by any of the following problems? 1. Little interest or pleasure in doing things: not at all 2. Feeling down, depressed, or hopeless: not at all 3. Trouble falling or staying asleep, or sleeping too much: not at all 4. Feeling tired or having little energy: not at all 5. Poor appetite or overeating: not at all 6. Feeling bad about yourself - or that you are a failure or have let yourself or your family down: not at all 7. Trouble concentrating on things, such as reading the newspaper or watching television: not at all 8. Moving or speaking so slowly that other people could have noticed. Or the opposite - being so fidgety or restless that you have been moving around a lot more than usual: not at all 9. Thoughts that you would be better off or of hurting yourself in some way: not at all Total score: 0 Depression Screening Interpretation: Negative Depression Screening Done: Yes Source: Developed by Drs. Justo Michaud, Sheyla Mcgee, Everett Valentin and colleagues, with an educational samina from [employer]. Thrive Questionnaire Date Thrive assessed: 01/05/25 I am a: Patient What is your living situation today?: I choose not to answer this question Within the past 12 months, did the food you bought not last and you didn't have the money to get more?: I choose not to answer this question Within the past 12 months, did you worry whether your food would run out before you got money to buy more?: I choose not to answer this question Do you have trouble paying for medicines?: I choose not to answer this question Do you have trouble getting transportation to medical appointments?: I choose not to answer this question Do you have trouble paying your heating and electricity bill?: I choose not to answer this question Do you have trouble taking care of your child, family member or friend?: I choose not to answer this question Do you have trouble with day-to-day activities such as bathing, preparing meals, shopping, managing finances, etc.?: I choose not to answer this question Are you currently unemployed and looking for a job?: I choose not to answer this question Are you interested in more education?: I choose not to answer this question Please select the resources that you would like help with: None Currently or been in a relationship where the following occur: I choose not to answer THRIVE Score: 0 AUDIT C Alcohol Use Questionnaire (AUDIT-C) 2. How many drinks containing alcohol do you have on a typical day when you are drinking?: 3 or 4 3. How often do you have six or more drinks on one occasion?: Less than monthly Total Score: 2 DEBBIE-7 AMB Questionnaire DEBBIE-7 Date DEBBIE - 7 assessed: 01/05/25 Feeling nervous, anxious, or on edge: 0 = Not at all Not being able to stop or control worryin = Not at all Worrying too much about different things: 0 = Not at all Trouble relaxin = Not at all Being so restless that it is hard to sit still: 0 = Not at all Becoming easily annoyed or irritable: 0 = Not at all Feeling afraid as if something awful might happen: 0 = Not at all Total DEBBIE-7 score (0-4 normal; 5-9 mild; 10-14 moderate; 15-21 severe): 0 Source: Developed by Drs. Justo Michaud, Sheyla Mcgee, Everett Valentin and colleagues, with an educational samina from [employer]. Physical exam (Primary Care) Vital Signs: Oxygen Delivery Method Room Air 01/05/25 09:03 Tobacco/Smoking Status: Tobacco use Status Tobacco use date assessed 01/05/25 01/05/25 09:09 Patient Tobacco Use Status Never used Tobacco 01/05/25 09:05 Tobacco use type Cigarette 01/05/25 09:05 e-Cigarette/Vaping Use Never Used 01/05/25 09:05 Depression Screening Interpretation: Negative Thrive Assessment: Date of Thrive Assessment Date Thrive assessed 01/05/25 01/05/25 09:05 Currently or been in a relationship where the following occur: I choose not to answer Const General: alert; No acute distress Eyes Conjunctivae: conjunctivae normal Resp Auscultation: clear to auscultation bilaterally Cardio Rate: regular rate Rhythm: regular rhythm GI Inspection: Yes normal to inspection Extrem General: Yes normal to inspection and No edema Coding Level of Care Code Est Pt Level 4 (05016) Complex EM visit Add On G2211 Diagnoses Type 2 diabetes mellitus with hyperglycemia, without long-term current use of insulin E11.65 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 care home use Montez's esophagus without dysplasia K22.70 Montez's esophagus type: without dysplasia Mild intermittent asthma without complication J45.20 Asthma severity: mild Asthma persistence: intermittent Asthma complication type: uncomplicated Benign prostatic hyperplasia with urinary frequency N40.1; R35.0 Lower urinary tract symptom presence: symptoms present Lower urinary tract symptom detail: urinary frequency Essential hypertension I10 Hypertension type: essential hypertension Hypercholesterolemia E78.00 Other dietary vitamin B12 deficiency anemia D51.3 Anemia type: B12 deficiency Vitamin B12 deficiency anemia type: other dietary B12 deficiency Assessment & Plan Assessment & Plan (1) Type 2 diabetes mellitus with hyperglycemia: Comment: dR. 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 Patient is on Jardiance 25 mg once a day metformin 1000 mg twice a day (2) Barretts esophagus: Comment: November 2012 Dr. Kay July 2022 Code(s): K22.70 - Montez's esophagus without dysplasia Category: Medical Qualifiers: Montez's esophagus type: without dysplasia Qualified Code(s): K22.70 - Montez's esophagus without dysplasia Plan: Avoid the foods that causes that usually spicy foods, tomato products, juices, coffee, soda and foods that your sensitive to. After eating do not lie down, allow 3-4 hours before in lie down. And keep the head of bed above 30 degrees to avoid the acid from going up. On omeprazole patient follows up with Dr. Kay (3) Asthma: Code(s): J45.909 - Unspecified asthma, uncomplicated Category: Medical Qualifiers: Asthma severity: mild Asthma persistence: intermittent Asthma complication type: uncomplicated Qualified Code(s): J45.20 - Mild intermittent asthma, uncomplicated Plan: Patient on albuterol inhaler and Flovent. (4) BPH (benign prostatic hyperplasia): Comment: Dr. Mccarthy Code(s): N40.0 - Benign prostatic hyperplasia without lower urinary tract symptoms Category: Medical Qualifiers: Lower urinary tract symptom presence: symptoms present Lower urinary tract symptom detail: urinary frequency Qualified Code(s): N40.1 - Benign prostatic hyperplasia with lower urinary tract symptoms; R35.0 - Frequency of micturition Plan: Continue with finasteride (5) Hypertension: Code(s): I10 - Essential (primary) hypertension Category: Medical Qualifiers: Hypertension type: essential hypertension Qualified Code(s): I10 - Essential (primary) hypertension Plan: Continue with blood pressure medication. Decrease salt intake and exercise patient takes losartan 25 mg once a day (6) Hypercholesterolemia: Code(s): E78.00 - Pure hypercholesterolemia, unspecified Category: Medical Plan: Avoid fried foods, chicken skin, eggs, butter margarine, pastries and meat. Be it pork or beef they have a lot of cholesterol 09/22/2024 last blood work on atorvastatin 10 mg once a day (7) Anemia: Comment: Chronic and stable Code(s): D64.9 - Anemia, unspecified Category: Medical Qualifiers: Anemia type: B12 deficiency Vitamin B12 deficiency anemia type: other dietary B12 deficiency Qualified Code(s): D51.3 - Other dietary vitamin B12 deficiency anemia Plan: Anemia of chronic disease stable Plan History of Present Illness The patient is a 64-year-old male presenting for a follow-up regarding his multiple chronic conditions. He is managing diabetes mellitus with Jardiance 25 mg once daily and metformin 1000 mg twice daily; recently, his hemoglobin A1C improved to 6.3. His Montez's esophagus is controlled with omeprazole. Asthma management includes albuterol and Flovent inhalers, with attention brought to the need for refills due to equipment. For benign prostatic hyperplasia, he continues finasteride, and his hypertension is managed with losartan 25 mg daily. His hypercholesterolemia is well controlled on atorvastatin 10 mg daily, with an LDL of 66. Anemia of chronic disease is stable. Recent tests include a colonoscopy in August 2024 and complete blood work in September 2024, ensuring no immediate concerns. Health Maintenance - Hemoglobin A1c was recently checked and showed improvement to 6.3. - Last colonoscopy completed in August 2024. - Regular follow-up with Dr. Kay for Montez's Esophagus. - Follow-up with trapeze artist Dr. Tong is scheduled. - Discussed flu season precautions and the continued presence of COVID-19 and RSV. - Encouraged prevention strategies for viral diseases, including norovirus and general hygiene measures. Social History - Discussed the patient's occasional travel plans, mentioning a planned cruise in April. - Exposure to allergens, particularly at a family member's house with cats, has been identified as a trigger for asthma exacerbation. Review of Systems - Respiratory: Reports shortness of breath when exposed to cats. - Gastrointestinal: Denies blood in stool. - General: Denies weight loss; reports weight stability. Physical Exam Results - Labs: Last hemoglobin A1c was 6.3, indicating improved glucose control. - Cholesterol: Recent LDL level was 66. - Tests: Most recent colonoscopy in August 2024 showed no issues of concern. - Blood Work: Completed blood count in September 2024 demonstrated mild anemia, considered chronic and stable. Plan The management for the patient's diabetes mellitus will persist with Jardiance and metformin, monitoring A1C in upcoming months. Montez's Esophagus management with ongoing omeprazole and specialist follow-ups remains unchanged. Asthma treatments require refills for Flovent and albuterol for optimal exacerbation management. Finasteride will continue for BPH, while blood pressure with losartan 25 mg will remain under surveillance. Cholesterol control via atorvastatin 10 mg is appropriate, with lipid panels reviewed on schedule. The stability of anemia of chronic disease will be observed. Emphasized on seasonal infection precautions, including recommended hygiene against viral agents like norovirus. Patient was informed and verbally consented to the use of an ambient scribe for clinic note documentation during this visit. Discussion Notes I discussed with the patient the stable management of his chronic conditions during the visit, emphasizing the necessity of continuing current medications, specifically Jardiance, metformin, and omeprazole, to manage diabetes mellitus, and Montez?s esophagus respectively. We reviewed the necessity of maintaining effective asthma management by ensuring non- inhalers are on hand, emphasizing needing refills of both rescue and maintenance inhalers. Discussed the importance of adhering to lifestyle modifications and medication regimens in maintaining cholesterol and blood pressure within desired ranges. Significant attention was given to remaining vigilant about infectious disease precautions, especially during flu season, mentioning the role of vaccinations and preventive measures. We reviewed scheduling aspects for future tests and follow-ups, including a six-month fasting blood test, regular eye exams, and reinforced avoiding triggers and environments that provoke asthma symptoms, such as those involving pets. Patient Instructions - Continue taking all prescribed medications as directed and ensure refills are up-to-date. - Monitor blood glucose levels regularly and report significant changes. - Use albuterol inhaler as needed for acute asthma symptoms, especially when around potential allergens such as cats. - Maintain healthy lifestyle practices to support blood pressure, cholesterol, and diabetes management. - Follow up with specialist doctors as scheduled. - Get the seasonal flu vaccine and other recommended vaccines to reduce risk. - Practice good hygiene to mitigate the spread of infectious diseases, including washing hands regularly. - Schedule a fasting blood test in six months as planned. - Report any changes in symptoms or health status. - Be cautious of allergens and avoid asthma triggers. Orders: Orders Complete Blood Count Auto Diff 6 Months E11.65 - Type 2 diabetes mellitus with hyperglycemia Lipid Panel 6 Months E11.65 - Type 2 diabetes mellitus with hyperglycemia, E78.00 - Pure hypercholesterolemia, unspecified Microalbumin, Random (w Creat) 6 Months E11.65 - Type 2 diabetes mellitus with hyperglycemia Ferritin 6 Months E11.65 - Type 2 diabetes mellitus with hyperglycemia Reticulocyte Count 6 Months E11.65 - Type 2 diabetes mellitus with hyp erglycemia Vitamin B12 and Folate 6 Months E11.65 - Type 2 diabetes mellitus with hyperglycemia Prostate Specific Antigen Scr 6 Months E11.65 - Type 2 diabetes mellitus with hyperglycemia AMB Hemoglobin A1c Today Z13.9 - Encounter for screening, unspecified Comprehensive Met. Panel 6 Months E11.65 - Type 2 diabetes mellitus with hyperglycemia Free T4 (Free Thyroxine) 6 Months E11.65 - Type 2 diabetes mellitus with hyperglycemia Thyroid Stimulating Hormone 6 Months E11.65 - Type 2 diabetes mellitus with hyperglycemia Creatinine Urine 6 Months E11.65 - Type 2 diabetes mellitus with hyperglycemia IRON PROFILE 6 Months E11.65 - Type 2 diabetes mellitus with hyperglycemia Hemoglobin A1c 6 Months E11.65 - Type 2 diabetes mellitus with hyperglycemia Medications: New albuterol sulfate 90 mcg/actuation (Proair Digihaler) 2 inhalations inhalation Q4-6H PRN 1 ea 0RF shortness of breath or wheezing J45.20 - Mild intermittent asthma, uncomplicated Changed From fluticasone propionate 110 mcg/actuation (Flovent HFA) 2 puffs inhalation BID J45.20 - Mild intermittent asthma, uncomplicated To fluticasone propionate 110 mcg/actuation 2 puffs inhalation BID 12 grams 4RF J45.20 - Mild intermittent asthma, uncomplicated
--- OUTSIDE RECORDS SUMMARY | 2025-01-05 09:28 | XMS_ITS ---
Author Organization [facility] Address [address] [place] [phone] Care Team Providers Care Food Clerk Name Role Phone Alden Palacios MD Primary Care Provider Rodrigo Chun Jr REASON FOR VISIT pathology Encounters Encounter Location Date Provider Diagnosis [facility] [address] [place] [phone] 08/25/2024 Rodrigo Kay Jr Plan Of Treatment No Information Progress Notes * JOHNATHON DAY MDOB: [birth year] (63 yo M)Acc No.[id number]:08/25/2024 Patient:?JOHNATHON DAY :1960???Age:63 Y???Sex:Male Address:[address] [place] [address], [place] [address] * true * Date:? Generated for Dionicioi juan/Aggie/eTransmitting on:?01/05/2025 09:28 AM EST
--- OUTSIDE RECORDS SUMMARY | 2025-01-05 09:29 | XMS_ITS ---
Author Organization [facility] Address [address] [place] [address] Care Team Providers Care Watch Inspector Final Movement Name Role Phone Alden Palacios MD Primary Care Provider Rodrigo Chun Jr [phone] REASON FOR VISIT screening Encounters Encounter Location Date Provider Diagnosis [facility] Outpatient [address] [place] [phone] 08/17/2024 Rodrigo Kay Jr Colon cancer screening Z12.11 ; Personal history of colonic polyps Z86.0100 and Colon polyps K63.5 Assessments Encounter Date Diagnosis (ICD Code) Assessment Notes Treatment Notes Treatment Clinical Notes Section Notes 08/17/2024 Colon cancer screening (ICD-10 - Z12.11) 08/17/2024 Personal history of colonic polyps (ICD-10 - Z86.0100) 08/17/2024 Colon polyps (ICD-10 - K63.5) Plan Of Treatment No Information Progress Notes * JOHNATHON DAY MDOB: 2 (64 yo M)Acc No.[id number]:08/17/2024 COLON WITH MAC Patient:?JOHNATHON DAY Provider:?Rodrigo Kay MD :1960???Age:63 Y???Sex:Male Wil e:08/17/2024 Address:[address] [place] [address] [id number] Pcp:Alden Palacios MD Subjective: * Chief Complaints: * ???1. Screening. * Medical History:? Objective: * Vitals:? Assessment: * Assessment: 1.?Colon cancer screening - Z12.11 (Primary)???2.?Personal history of colonic polyps - Z86.0100???3.?Colon polyps - K63.5??? Plan: * Treatment: * Procedure Codes:?66597 COLON OSCOPY AND BIOPSY * * The named appointment provid er may or may not be the originator of this progress note, and it is not deemed complete until electronically signed by the appointment provider. Sign off status: Pending * Provider:?Rodrigo Kay MD Date:?1 Generated for Juana martinez/Aggie/Maria D on:?01/05/2025 09:28 AM EST
--- OUTSIDE RECORDS SUMMARY | 2025-01-05 09:29 | XMS_ITS ---
Author Organization [facility] Address [address] [place] [phone] Care Team Providers Care Powder Shoveler Name Role Phone Alden Palacios MD Primary Care Provider Rodrigo Chun Jr REASON FOR VISIT please lock 07-22-2024 office note Encounters Encounter Location Date Provider Diagnosis [facility] [address] [place] [phone] 08/11/2024 Rodrigo Kay Jr Plan Of Treatment No Information Progress Notes * JOHNATHON DAY MDOB: 2 (63 yo M)Acc No.[id number]:08/11/2024 Patient:?JOHNATHON DAY :1960???Age:63 Y???Sex:Male Address:[address] [place] [id number] * true * Date:? Generated for Printi juan/Aggie/eTransmitting on:?01/05/2025 09:28 AM EST
--- OUTSIDE RECORDS SUMMARY | 2025-01-05 09:29 | XMS_ITS | Patient Health Record ---
Author Organization [facility] Address [address] [place] [address] Care Team Providers Care Home Care Nurse Name Role Phone Alden Palacios MD Primary Care Provider Rodrigo Chun Jr Allergies Allergen (clinical drug ingredient) Drug/Non Drug Allergy documented on EMR Reaction Allergy Type Onset Date Status cat dander allergenic extract / cat skin extract cat hair (uncoded) Unknown Allergy Active Results Component Value Reference Range Notes Glucose, Whole Blood Reviewed date:08/17/2024 02:36:51 PM Interpretation: Performing Lab:[facility], [address] [place] [phone] Notes/Report: Glucose, Whole Blood 122 60-115 mg/dL METER # : [id number] Pathology Reviewed date:08/25/2024 08:21:27 AM Interpretation: Performing Lab:[facility], [address] [place] [phone] Notes/Report: ---- Name: Jarrod Day Age/Sex: 63/M : 1960 Unit#: [id number] Attend Dr: Rodrigo Kay MD Re08/17/24 Status : [facility] Location: [facility] Disch: ---- SPEC : [id number] RECD : 08/17/24 STATUS: LIV LUCIANO NUM: [id number] DIANA: 08/17/24 [facility] DR: Rodrigo Kay MD ENTERED: 08/17/24 SP TYPE: Surgical OTHR DR: Alden Palacios MD ORDERED: HE Stain/3, Gross Micro L4 Diagnosis Colon, 60 cm, polypectomies: Tubular adenomata; negative for high-grade dysplasia or carcinoma. Clinical History Pre-Op Dx: Screening Post-Op Dx: Colon polyps Microscopic Description Microscopic sections reviewed. Material Received Polyps at 60 cm Gross Description Received in formalin labeled ?polyps at 60 cm? are 3 strong-pink irregular and papular tissue fragments ranging fr om 0.25-0.35 cm, submitted in toto in a cassette labeled A. CEDS Copies To: Rodrigo Kay MD [address] [place], [place] [id number] Alden Palacios MD [facility],[address] [place], [place] [id number] ---- Signed (signature on file) Jordan Alcazar MD 08/19/24 0615 ---- END OF REPORT Reason For Referral No Information Medications Medication SIG (Take, Route, Frequency, Duration) Notes [...] 1 tablet Orally Once a day Active Immunizations Vaccine Route Administration Date Status Comme nts Influenza Unknown 09/03/2018 Administered Influenza Unknown 09/25/2021 Administered Social History Alcohol Screen Question Answer Notes Did you [...] Monthly (2 points) Points 5 Interpretation Positive Problems Problem Type SNOMED Code ICD Code Onset Dates Problem Status W/U Status Risk Notes Problem 809029495 Colon cancer screening (Z12.11) Active confirmed Problem 538919505 Montez's esophagus without dysplasia (K22.70) Active confirmed Problem 082769410 Diverticulosis o f large intestine without hemorrhage (K57.30) Active confirmed Problem 628440807 Long-term use of aspirin therapy (Z79.82) Active confirmed Problem 588277835 Long-term curren t use of high risk medication other than anticoagulant (Z79.899) Active confirmed Problem 532646225961802 senior care (current) use of oral hypoglycemic drugs (Z79.84) Active confirmed Vital Signs Blood pressure diastolic 00 mm Hg 07/22/2024 Height 69 in 07/22/2024 Blood pressure systolic 00 mm Hg 07/22/2024 Weight 198 lbs 07/22/2024 BMI 29.24 kg/m2 07/22/2024 Encounters Encounter Location Date Provider Diagnosis [facility] [address] [place] [id number] 08/17/2024 Rodirgo Kay Jr Colon cancer screening Z12.11 ; Personal history of colonic polyps Z86.0100 and Colon polyps K63.5 [facility] [address] [place] [phone] 07/22/2024 Rodrigo Kay Jr Colon cancer screening Z12.11 ; Montez's esophagus without dysplasia K22.70 ; senior care (current) use of oral hypoglycemic drugs Z79.84 and Long-term current use of high risk medication other than anticoagulant Z79.899 [facility] [address] [facility] [address] [place] [phone] 08/11/2024 Rodrigo Kay Jr [facility] [address] [place] [phone] 08/25/2024 Rodrigo Kay Jr Assessments Encounter Date Diagnosis (ICD Code) Assessment Notes Treatment Notes Treatment Clinical Notes Section Notes 08/17/2024 Colon cancer screening (ICD-10 - Z12.11) 08/17/2024 Personal history of colonic polyps (ICD-10 - Z86.0100) 07/22/2024 Colon cancer screening (ICD-10 - Z12.11) Colonoscopy material was printed At this time, he is doing well. Reflux symptoms are under good control. He will continue omeprazole. He is due for followup colonoscopy. This will be arranged. He is aware of risks and benefits and agrees to proceed. He is advised to stop turmeric one week before the procedure, Jardiance 3 days before the procedure, and metformin the day before the procedure. 07/22/2024 Montez's esophagus without dysplasia (ICD-10 - K22.70) At this time, he is doing well. Reflux symptoms are under good control. He will continue omeprazole. He is due for followup colonoscopy. This will be arranged. He is aware of risks and benefits and agrees to proceed. He is advised to stop turmeric one week before the procedure, Jardiance 3 days before the procedure, and metformin the day before the procedure. 08/17/2024 Colon polyps (ICD-10 - K63.5) 07/22/2024 senior care (current) use of oral hypoglycemic drugs (ICD-10 - Z79.84) At this time, he is doing well. Reflux symptoms are under good control. He will continue omeprazole. He is due for followup colonoscopy. This will be arranged. He is aware of risks and benefits and agrees to proceed. He is advised to stop turmeric one week before the procedure, Jardiance 3 days before the procedure, and metformin the day before the procedure. 07/22/2024 Long-term current use of high risk medication other than anticoagulant (ICD-10 - Z79.899) At this time, he is doing well. Reflux symptoms are under good control. He will continue omeprazole. He is due for followup colonoscopy. This will be arranged. He is aware of risks and benefits and agrees to proceed. He is advised to stop turmeric one week before the procedure, Jardiance 3 days before the procedure, and metformin the day before the procedure. Plan Of Treatment Future Test Test Name Order Date UPPER GI ENDOSCOPY 05/28/2012 COLONOSCOPY 05/28/2012 UPPER GI ENDOSCOPY 01/04/2016 UPPER GI ENDOSCOPY 11/19/2018 COLONOSCOPY 11/19/2018 UPPER GI ENDOSCOPY 04/22/2022 COLONOSCOPY 07/22/2024 Insurance Providers Payer Name Payer Address Payer Phone Subscriber Number Group Number Insured Name Patient Relationship to Insured Coverage Start Date Coverage End Date [facility] [address] [place] [address] [id number] JARROD DAY Self - patient is the insured Medical (General) History Medical History History ICD Code Montez's Esophagus, EGD 06/24, three-yea r recall Hiatal Hernia Duodenitis BPH, PSA 2.8 on 07/16, MR for prostate wa s negative 07/27 Asthma Diabetes mellitus type 2 Colonoscopy 03/21, five-year followup due to personal history of colon polyps Surgical History Surgery Date(Month/Year) dental inplant
== END 2025-01-05 09:43 | disposition home or self-care (01) ==
PROVIDERS: PCP Internal Medicine; Visit Provider Internal Medicine
DX: E11.65 Type 2 diabetes mellitus with hyperglycemia (principal); K22.70 Barrett's esophagus without dysplasia; J45.20 Mild intermittent asthma, uncomplicated; N40.1 Benign prostatic hyperplasia with lower urinary tract symptoms; R35.0 Frequency of micturition; I10 Essential (primary) hypertension; E78.00 Pure hypercholesterolemia, unspecified; D51.3 Other dietary vitamin B12 deficiency anemia; Z13.9 Encounter for screening, unspecified

== ENCOUNTER → 2025-01-05 08:45 | Outpatient (BNVA) | payer OTHER, SELFPAY | PROVIDERS: PCP Internal Medicine; Visit Provider Internal Medicine | DX: E11.65 Type 2 diabetes mellitus with hyperglycemia (principal); K22.70 Barrett's esophagus without dysplasia; J45.20 Mild intermittent asthma, uncomplicated; N40.1 Benign prostatic hyperplasia with lower urinary tract symptoms; R35.0 Frequency of micturition; I10 Essential (primary) hypertension; E78.00 Pure hypercholesterolemia, unspecified; D51.3 Other dietary vitamin B12 deficiency anemia | CPT/HCPCS: 83036; 99212 ==

== ENCOUNTER 2025-09-20 07:09 | Outpatient (REF) | payer OTHER, SELFPAY ==
[2025-09-20 07:22] LABS: MANUAL DIFF FLAG NO
[2025-09-20 07:52] LABS: Hematocrit 45.1 % (42.0-52.0); Hemoglobin 14.7 g/dl (14.0-18.0); Imm Gran Abs Auto 0.03 X10*3/uL (0.00-0.03); Imm Gran Pct Auto 0.4 % (0.0-0.4); Lymphocytes Absolute Auto 2.8 X10*3/uL (1.2-4.9); Mean Corpuscular HGB Conc 32.6 g/dl (31.0-36.0); Mean Corpuscular Hemoglobin 29.6 pg (27.0-33.0); Mean Corpuscular Volume 90.9 fL (80.0-98.0); NRBC Abs Auto 0.000 X10*3/uL (0.0-0.012); NRBC Pct Auto 0.0 /100WBC (0.0-0.2); Platelet Count 263 X10*3/uL (160-400); Red Blood Count 4.96 X10*6/uL (4.60-5.80); Reticulocytes Absolute 0.069 X10*6/uL (0.026-0.095); White Blood Count 7.6 X10*3/uL (4.8-10.8)
[2025-09-20 08:24] LABS: Alanine Aminotransferase 15 U/L (0-40); Albumin Level 4.9 g/dL (3.5-5.0); Alkaline Phosphatase 67 U/L (39-117); Anion Gap 15 (12-20); Aspartate Amino Transferase 15 U/L (5-37); Blood Urea Nitrogen 17 mg/dL (9-16); Calcium 9.7 mg/dL (8.4-10.2); Carbon Dioxide 26 mmol/L (22-29); Chloride 102 mmol/L (96-108); Cholesterol 138 mg/dL (<200); Estimated Glomerular Filt Rate > 60; HDL Cholesterol 55 mg/dL (>40); Iron 87 mcg/dL (45-160); Percent Iron Saturation 31 % (15-50); Potassium 3.8 mmol/L (3.3-5.1); Sodium 139 mmol/L (135-145); Total Iron Binding Capacity 281 mcg/dL (228-428); Total Protein 7.4 g/dL (6.5-8.0); Triglycerides 76 mg/dL (<150); Unsaturated Iron Binding 194 ug/dL
[2025-09-20 08:41] LABS: Ferritin 58 ng/mL (20-250); Free T4 (Free Thyroxine) 1.00 ng/dL (0.71-1.85); Thyroid Stimulating Hormone 1.17 uIU/mL (0.32-4.0)
[2025-09-20 08:49] LABS: Folate 9.3 ng/mL (> or = 4.0); Vitamin B12 439 pg/mL (200-900)
== END 2025-09-20 07:10 | disposition home or self-care (01) ==
LOC: HO.LAB 07:09
PROVIDERS: PCP Internal Medicine; Visit Provider Internal Medicine
DX: Z12.5 Encounter for screening for malignant neoplasm of prostate (principal); E11.65 Type 2 diabetes mellitus with hyperglycemia; E78.00 Pure hypercholesterolemia, unspecified
CPT/HCPCS: 36415; 80053; 80061; 82043; 82570; 82607; 82728; 82746; 83036; 83540; 84153; 84439; 84443; 85025; 85045

== ENCOUNTER 2025-09-27 08:33 | Outpatient (AMB) | payer OTHER, SELFPAY ==
[2025-09-27 08:39] VITALS: BP 128/70; PULSE 67; TEMP 36.2; O2SAT 95; BMI 29.1
--- NOTE | 2025-09-27 08:39 | MHC.PC.OV ---
Vital Signs 09/27/25 08:39 Height 5 ft 8 in Weight 191 lb 2 oz BMI 29.1 BP 128/70 Blood Pressure Location Lt brachial Position Sitting Pulse 67 Pulse Source Pulse Oximeter Temp 97.1 F Temp Source Temporal Artery Scan Pulse Oximetry (%) 95 Oxygen Delivery Method Room Air Intake Visit Reasons: pe Allergies lisinopril Allergy (Unknown, Verified 09/27/25 08:42) cough Medication List - Last Reconciled 09/27/25 by Alden Palacios MD albuterol sulfate 90 mcg/actuation 2 puffs inhalation Q4-6H PRN atorvastatin 10 mg PO DAILY blood sugar diagnostic ([place] Ultra Blue Test Strip) As directed check the blood sugar once a day cholecalciferol (vitamin D3) 25 mcg PO DAILY cyanocobalamin (vitamin B-12) 1,000 mcg PO .once a week empagliflozin 25 mg PO DAILY finasteride 5 mg PO DAILY fluticasone propionate 110 mcg/actuation 2 puffs inhalation BID lancets (GenPrime Delica Plus Lancet) As directed check the BS QD losartan 25 mg PO DAILY metformin 1,000 mg PO BID olopatadine 0.1% 1 drp ophthalmic (eye) BID omeprazole 20 mg PO DAILY ridrtqul-qega-xtndx-oreg-capry 100 mg-150 mg- 50 mg-150 mg 1 cap PO DAILY Tobacco use date assessed: 09/27/25 Dental Screening Dental Screen Date: 09/27/25 Did you have a dental visit in the last 12 months?: Yes Did you have a dental problem in the last 6 months where you did not have access to dental care?: No Was dental information given to patient?: Patient has dentist HPI HPI Comments History of Present Illness Details History of Present Illness The patient is a 64-year-old individual presenting for a follow-up visit for management of chronic conditions and a wellness plan. The patient has a history of type 2 diabetes mellitus, managed with Jardiance 25 mg and metformin 1000 mg. The patient's most recent hemoglobin A1c was 6.6%, an increase from the previous value of 6.2%, and the fasting blood sugar was 121 mg/dL. The patient has a history of hypertension, which is managed with losartan 25 mg daily, and hypercholesterolemia, treated with atorvastatin 10 mg daily. The patient's LDL cholesterol is 68 mg/dL. The patient has a history of cough with lisinopril. For BPH with elevated PSA, the patient is followed by urology and is on a surveillance protocol. The patient's PSA is 3.88, and a prior biopsy was negative. The patient takes finasteride for the prostate. Additional history includes Montez's esophagus, for which the patient takes omeprazole and is scheduled for a surveillance upper endoscopy in November. The patient has a history of tubular adenoma of the colon with the last colonoscopy reported as August 2024. The patient also has asthma, using an albuterol inhaler as needed for symptoms sometimes associated with acid reflux. The patient has mild cataracts with no diabetic retinopathy, with an ophthalmology follow-up scheduled for February 2025. Family history is positive for prostate cancer in the patient's father and brother, and a stroke in the patient's mother. There is no family history of heart attack. Health Maintenance The patient received a flu shot today. The patient has an upcoming ophthalmology appointment in February 2025 and a surveillance EGD in November. Will follow up in 3 months to reassess glycemic control. Social History - Alcohol: Reports drinking approximately four alcoholic beverages once per week. - Tobacco: Denies ever smoking. - Illicit drug use: Denies use. - Exercise: Reports a decrease in walking activity. - Diet: Drinks a lot of coffee in the morning and avoids eating after 3 p.m. due to reflux. - Living situation: Lives alone. Results - Labs (September 20): - CBC: Normal, with no anemia. - CMP: Electrolytes and renal function are normal. Fasting blood sugar is 121 mg/dL. - Hemoglobin A1c: 6.6%. - Lipid Panel: LDL is 68 mg/dL. - Other labs: Iron, liver function, vitamin B12, folic acid, and thyroid studies are within normal limits. - PSA: 3.88 ng/mL. - Urinalysis: No proteinuria. - Past Urology Results: Prostate biopsy was negative. [facility] Medical History Hypercholesterolemia Vitamin D deficiency Hypertension BPH (benign prostatic hyperplasia) Asthma GERD (gastroesophageal reflux disease) Barretts esophagus Type 2 diabetes mellitus with hyperglycemia Surgical History History of esophagogastroduodenoscopy (EGD) H/O endoscopy History of colonoscopy Family History Father Prostate cancer Mother Stroke Brother Prostate cancer Family/Other Prostate cancer Diabetes Social History Housing: House Alcohol intake: current Alcohol intake frequency: a few times a week Comment: once to twice a week 3 drinks Patient Tobacco Use Status: Never used Tobacco Tobacco use type: Cigarette e-Cigarette/Vaping Use: Never Used Second Hand Smoke Exposure: No Current occupational status: employed Cognitive needs: No Hearing needs: No Vision needs: Yes Questionnaire PHQ-9 Over the last 2 weeks, how often have you been bothered by any of the following problems? 1. Little interest or pleasure in doing things: not at all 2. Feeling down, depressed, or hopeless: not at all 3. Trouble falling or staying asleep, or sleeping too much: not at all 4. Feeling tired or having little energy: not at all 5. Poor appetite or overeating: not at all 6. Feeling bad about yourself - or that you are a failure or have let yourself or your family down: not at all 7. Trouble concentrating on things, such as reading the newspaper or watching television: not at all 8. Moving or speaking so slowly that other people could have noticed. Or the opposite - being so fidgety or restless that you have been moving around a lot more than usual: not at all 9. Thoughts that you would be better off or of hurting yourself in some way: not at all Total score: 0 Source: Developed by Drs. Justo Michaud, Sheyla Mcgee, Everett Valentin and colleagues, with an educational samina from [employer]. Thrive Questionnaire Date Thrive assessed: 01/05/25 I am a: Patient What is your living situation today?: I have a steady place to live Within the past 12 months, did the food you bought not last and you didn't have the money to get more?: Never true Within the past 12 months, did you worry whether your food would run out before you got money to buy more?: Never true Do you have trouble paying for medicines?: No Do you have trouble getting transportation to medical appointments?: No Do you have trouble paying your heating and electricity bill?: No Do you have trouble taking care of your child, family member or friend?: No Do you have trouble with day-to-day activities such as bathing, preparing meals, shopping, managing finances, etc.?: No Are you currently unemployed and looking for a job?: I choose not to answer this question Are you interested in more education?: No Please select the resources that you would like help with: None Currently or been in a relationship where the following occur: No concerns reported THRIVE Score: 0 AUDIT C Alcohol Use Questionnaire (AUDIT-C) 1. How often do you have a drink containing alcohol?: 2-4 times a month 2. How many drinks containing alcohol do you have on a typical day when you are drinking?: 1 or 2 3. How often do you have six or more drinks on one occasion?: Never Total Score: 2 DEBBIE-7 AMB Questionnaire DEBBIE-7 Date DEBBIE - 7 assessed: 01/05/25 Feeling nervous, anxious, or on edge: 0 = Not at all Not being able to stop or control worryin = Not at all Worrying too much about different things: 0 = Not at all Trouble relaxin = Not at all Being so restless that it is hard to sit still: 0 = Not at all Becoming easily annoyed or irritable: 0 = Not at all Feeling afraid as if something awful might happen: 0 = Not at all Total DEBBIE-7 score (0-4 normal; 5-9 mild; 10-14 moderate; 15-21 severe): 0 Source: Developed by Drs. Justo Michaud, Sheyla Mcgee, Everett Valentin and colleagues, with an educational samina from [employer]. Review of Systems Narrative Review of Systems - Constitutional: Denies fever. - HEENT: Reports history of tinnitus, but it is not bothersome. Denies dysphagia or globus sensation. - Cardiovascular: Denies waking with shortness of breath, chest pain, heaviness, or discomfort. - Gastrointestinal: Reports daily watery stools in the morning after drinking coffee, but is not bothered by this. Denies constipation or hematochezia. Reports symptoms of acid reflux if eating late. - Genitourinary: Reports nocturia once per night. - Neurological: Denies syncope or dizziness. Const Denies poor appetite and Denies weakness Eyes Denies no additional complaints ENT Reports Normal hearing present, Denies dizziness, Denies nasal congestion, Denies tinnitus and Denies sore throat Card Denies chest pain, Denies syncope, Denies rapid heart rate and Denies dyspnea Resp Denies cough and Denies dyspnea GI Denies change in stool character, Reports constipation, Denies diarrhea, Denies nausea and Denies vomiting Denies dysuria and Denies urinary frequency Neuro Reports Normal hearing present, Denies confusion, Denies dizziness, Denies syncope and Denies weakness Psych Denies confusion Physical exam (Primary Care) Vital Signs: Last Vital Signs Temp 97.1 F 09/27/25 08:39 Pulse 67 09/27/25 08:39 BP 128/70 09/27/25 08:39 Pulse Ox 95 09/27/25 08:39 Oxygen Delivery Method Room Air 09/27/25 08:39 BMI result Body Mass Index 29.1 Tobacco/Smoking Status: Tobacco use Status Tobacco use date assessed 09/27/25 09/27/25 08:43 Patient Tobacco Use Status Never used Tobacco 09/27/25 08:43 Tobacco use type Cigarette 09/27/25 08:43 e-Cigarette/Vaping Use Never Used 09/27/25 08:43 PHQ-9: PHQ-9 Score PHQ-9: Total score 0 09/27/25 09:02 Thrive Assessment: Date of Thrive Assessment Date Thrive assessed 01/05/25 09/27/25 08:43 Currently or been in a relationship where the following occur: No concerns reported Narrative Physical Exam General: Cooperative, healthy appearing, comfortable, no acute distress and well developed Orientation: Patient oriented x3 Limitations: No limitations Head: Normal to inspection Ears: Hearing grossly normal bilaterally, some ear wax present but not covering Nose: Normal external nose present Face and sinus: Normal facial exam Eyes: Appearance normal, both eyes and all related structures, mild cataracts noted Neck: Normal visual inspection and Yes full ROM Respiratory: Normal respiratory effort and able to speak in complete sentences. Clear to auscultation bilaterally Cardiovascular: Regular rate and rhythm. Normal S1 and S2 GI: Normal to inspection. Soft to palpation and nontender Skin: No rashes or lesions noted Neuro: Patient oriented x3 Extremities: Normal to inspection, no lumps or bumps noted, no hernias detected Const General: No confusion Orientation/consciousness: No confusion [facility] Other: impacted cerumen bilateral Head: Yes normocephalic Ears: external ears normal Face and sinus: Yes normal facial exam Mouth: moist mucous membranes Throat: Yes tonsils normal Eyes Conjunctivae: conjunctivae normal Pupils: Equal, round and reactive pupils present and Pupil accommodation reflex normal Direct Ophthalmoscopy: normal light reflex Neck Neck: No lymphadenopathy Thyroid: Thyroid normal Chest Chest palpation & inspection: normal inspection of the chest Resp Effort & Inspection: normal respiratory effort and no audible wheezes Auscultation: clear to auscultation bilaterally, no crackles, no wheezes and lung sounds not diminished Cardio Rate: regular rate Rhythm: regular rhythm Peripheral pulses: radial pulses present and dorsalis pedis present GI Other: declined Palpation (GI): no masses Auscultation: normal bowel sounds and normoactive bowel sounds Rectal Exam - Male: Yes deferred Skin General skin exam: no rashes or lesions noted Rashes: no rashes Neuro General: No confusion Cranial nerves: Yes Equal, round and reactive pupils present and Yes Normal hearing present Cognition (Neuro): normal cognition Gait exam (Neuro): Normal gait present Motor exam (neuro): 5/5 motor strength present throughout Deep tendon reflexes (DTR's): Right brachioradialis reflex intensity grade: 2+, Left brachioradialis reflex intensity grade: 2+, Right patellar reflex intensity grade: 2+ and Left patellar reflex intensity grade: 2+ Extrem General: No edema Office Procedures Cerumen Removal From which ear canal was the cerumen removed: bilateral Removal: otoscope w/curette, cerumen loop/spoon and other Notes: patient tolerated procedure well, no complications and ear canal clear [id number] Wax Removal by Spoon/Curette Flu Questionnaire Does the patient have a severe egg allergy?: No Does the patient have severe life threatening allergies?: No Does the patient have a fever or illness today?: No Has the patient ever had Guillain-Hawthorne Syndrome?: No Has the patient ever had any past reaction to a flu shot?: No Immunizations Fluarix [id number] (PF) 45 mcg (15 mcg x 3)/0.5 mL IM syringe Performing Provider: Alden Palacios MD [facility] [place] [facility] Administered by: Annamarie Posey CMA on 09/27/25 08:48 Dose Route Admin Location Dispensed Lot Number Expiration Date NDC Analyst [employer] Bever[employer] 0.5 mL IM Left Deltoid 0.5 mL [id number] 05/02/26 89431-822-20 [employer] VIS Given Date VIS Provided VIS Publication Date 09/27/25 Single Vaccine 24 Eligibility Eligibility Date Funding Source Not [facility] Eligible 09/27/25 Private Coding Level of Care Code Est Pt Level 3 (70242) Est Pt Prev Care 40-64y(21281) Diagnoses Annual physical exam Z00.00 Type 2 diabetes mellitus with hyperglycemia, without long-term current use of insulin E11.65 Diabetes mellitus terminal computer operator insulin use: without terminal computer operator use Essential hypertension I10 Hypertension type: essential hypertension Hypercholesterolemia E78.00 Montez's esophagus without dysplasia K22.70 Montez's esophagus type: without dysplasia Benign prostatic hyperplasia with urinary frequency N40.1; R35.0 Lower urinary tract symptom detail: urinary frequency Lower urinary tract symptom presence: symptoms present Mild intermittent asthma without complication J45.20 Asthma complication type: uncomplicated Asthma persistence: intermittent Asthma severity: mild Impacted cerumen of both ears H61.23 CPT Codes Office Procedure - CPT: 40063-Lwu Wax Removal by Spoon/Curette ([id number]) Assessment & Plan Assessment & Plan (1) Annual physical exam: Code(s): Z00.00 - Encounter for general adult medical examination without abnormal findings Category: Medical Plan: Patient is advised to eat healthy, keep well hydrated, keep active and have adequate sleep. (2) Type 2 diabetes mellitus with hyperglycemia: Comment: dR. Alycia Rosales and lasalicia Code(s): E11.65 - Type 2 diabetes mellitus with hyperglycemia Category: Medical Qualifiers: Diabetes mellitus chcf insulin use: without terminal computer operator use Qualified Code(s): E11.65 - Type 2 diabetes mellitus with hyperglycemia Plan: Decrease the amount of carbohydrate intake, pasta, bread, rice and potatoes are all sugar and that is aside from all the sweet stuff, remember that fruits are good but they are Sweet also. Hemoglobin A1c goal of less than 6.5. Patient on Jardiance and metformin (3) Hypertension: Code(s): I10 - Essential (primary) hypertension Category: Medical Qualifiers: Hypertension type: essential hypertension Qualified Code(s): I10 - Essential (primary) hypertension Plan: Continue with blood pressure medication. Decrease salt intake and exercise patient takes losartan 25 mg once a day (4) Hypercholesterolemia: Code(s): E78.00 - Pure hypercholesterolemia, unspecified Category: Medical Plan: Avoid fried foods, chicken skin, eggs, butter margarine, pastries and meat. Be it pork or beef they have a lot of cholesterol LDL goal of less than 100 and triglyceride of less than 150 on atorvastatin 10 mg once a day (5) Barretts esophagus: Comment: November 2012 Dr. Kay July 2022 Code(s): K22.70 - Montez's esophagus without dysplasia Category: Medical Qualifiers: Montez's esophagus type: without dysplasia Qualified Code(s): K22.70 - Montez's esophagus without dysplasia Plan: Avoid the foods that causes that usually spicy foods, tomato products, juices, coffee, soda and foods that your sensitive to. After eating do not lie down, allow 3-4 hours before in lie down. And keep the head of bed above 30 degrees to avoid the acid from going up. (6) BPH (benign prostatic hyperplasia): Comment: Dr. Mccarthy Code(s): N40.0 - Benign prostatic hyperplasia without lower urinary tract symptoms Category: Medical Qualifiers: Lower urinary tract symptom detail: urinary frequency Lower urinary tract symptom presence: symptoms present Qualified Code(s): N40.1 - Benign prostatic hyperplasia with lower urinary tract symptoms; R35.0 - Frequency of micturition Plan: Patient follows up with urology on finasteride (7) Asthma: Code(s): J45.909 - Unspecified asthma, uncomplicated Category: Medical Qualifiers: Asthma complication type: uncomplicated Asthma persistence: intermittent Asthma severity: mild Qualified Code(s): J45.20 - Mild intermittent asthma, uncomplicated Plan: On albuterol inhaler as needed (8) Impacted cerumen of both ears: Code(s): H61.23 - Impacted cerumen, bilateral Category: Medical Plan: scoop used no irrigation TM intact Plan Plan Patient was informed and verbally consented to the use of an ambient scribe for clinic note documentation during this visit. 1. Type 2 Diabetes Mellitus The patient's hemoglobin A1c has increased to 6.6%, which is above the goal of less than 6.5%. The patient is currently on maximum doses of Jardiance and metformin. It was discussed that adding another medication is an option, but the patient prefers to first attempt lifestyle modifications, attributing the elevated sugar to social eating. The plan is to defer medication changes, encourage dietary improvements and exercise, and recheck labs in three months. 2. Hypercholesterolemia The patient's LDL cholesterol is well-controlled at 68 mg/dL, which is below the goal of 100 mg/dL. The plan is to continue atorvastatin 10 mg once daily. 3. Hypertension The patient's blood pressure is well-controlled on the current regimen. The plan is to continue losartan 25 mg once daily. Counseled on new recommendations to limit alcohol intake with hypertension. 4. Benign Prostatic Hyperplasia With Elevated Psa The patient is followed by urology for BPH and an elevated PSA of 3.88, with a history of a negative biopsy. The plan is to continue surveillance with urology and continue finasteride as prescribed. 5. Montez's Esophagus The patient is on omeprazole for Montez's esophagus. The patient is scheduled for a surveillance upper endoscopy with Dr. Kay in November. Will continue current management. 6. Asthma The patient's asthma is stable, with infrequent use of an albuterol inhaler for symptoms triggered by colds or acid reflux. The plan is to continue using the albuterol inhaler as needed. 7. Cerumen Impaction Near-occluding cerumen was noted in one ear during the physical exam. The ear canal was irrigated and cleared during the visit. Discussion Notes I reviewed the recent lab work results with the patient. I noted that all numbers were good except for the hemoglobin A1c, which has risen to 6.6%. I explained that while adding another medication for diabetes is an option, as the patient is on maximum doses of current medications, we could also defer this change. The patient preferred to attempt lifestyle and dietary modifications first, and we agreed to re-evaluate in three months. I also discussed the latest health recommendations regarding alcohol consumption, advising that for individuals with hypertension, the recommendation is moving towards zero alcohol due to its correlation with blood pressure and memory problems. I provided dietary advice for the upcoming holidays to help manage blood sugar, such as choosing leaner proteins over carbohydrates. We confirmed the patient's existing specialist follow-ups, including urology, ophthalmology, and the upcoming upper endoscopy for Montez's surveillance. Patient Instructions - Continue your current medications as prescribed. - Focus on diet and exercise to help lower your blood sugar. During the holidays, try to eat more turkey and less stuffing and side dishes. - Consider reducing your alcohol intake, as recent studies suggest it can impact blood pressure and memory. - You have an appointment for an upper endoscopy (EGD) with Dr. Kay in November to check on your Montez's esophagus. - We will see you back in this office in about 3 months to recheck your blood sugar levels. Orders: Orders Influenza [id number] Immunization Today Z23 - Encounter for immunization
== END 2025-09-27 09:22 | disposition home or self-care (01) ==
LOC: HO.HMCH 08:34
PROVIDERS: PCP Internal Medicine; Visit Provider Internal Medicine
DX: Z00.00 Encounter for general adult medical examination without abnormal findings (principal); E11.65 Type 2 diabetes mellitus with hyperglycemia; I10 Essential (primary) hypertension; E78.00 Pure hypercholesterolemia, unspecified; K22.70 Barrett's esophagus without dysplasia; N40.1 Benign prostatic hyperplasia with lower urinary tract symptoms; R35.0 Frequency of micturition; J45.20 Mild intermittent asthma, uncomplicated; H61.23 Impacted cerumen, bilateral; Z23 Encounter for immunization

== ENCOUNTER → 2025-09-27 08:33 | Outpatient (BNVA) | payer OTHER, SELFPAY | PROVIDERS: PCP Internal Medicine; Visit Provider Internal Medicine | DX: Z00.00 Encounter for general adult medical examination without abnormal findings (principal); E11.9 Type 2 diabetes mellitus without complications; I10 Essential (primary) hypertension; K22.70 Barrett's esophagus without dysplasia; E11.65 Type 2 diabetes mellitus with hyperglycemia; E78.00 Pure hypercholesterolemia, unspecified; N40.1 Benign prostatic hyperplasia with lower urinary tract symptoms; R35.0 Frequency of micturition; J45.20 Mild intermittent asthma, uncomplicated; H61.23 Impacted cerumen, bilateral; R97.20 Elevated prostate specific antigen [PSA]; Z23 Encounter for immunization; Z79.84 Long term (current) use of oral hypoglycemic drugs | CPT/HCPCS: 69210; 90471; 90656; 99396 ==